=== PATIENT | male | born 1940 | race Caucasian/White ===

== ENCOUNTER 2017-01-25 10:44 | Inpatient (IN) | payer MEDICARE, OTHER ==
[~2017-01-25] VITALS: Ht 182.9 cm; Wt 108.4 kg
[2017-01-25] MEDS ORDERED: METF10004 PO (11:06)
[2017-01-25] MEDS ORDERED: GLIM2TAB PO (11:06)
[2017-01-25] MEDS ORDERED: FISH1000 PO (11:06)
[2017-01-25] MEDS ORDERED: PRAV40TA2 PO (11:06)
[2017-01-25] MEDS ORDERED: IPRAINH INH (11:06)
[2017-01-25] MEDS ORDERED: INCR1INH IN (11:06)
[2017-01-25] MEDS ORDERED: HYDR12.55 PO (11:06)
[2017-01-25] MEDS ORDERED: LISI-538 PO (11:06)
[2017-01-25] MEDS ORDERED: ASPI81TA85 PO (11:06)
[2017-01-25] MEDS ORDERED: MULTCAP11 PO (11:06)
[2017-01-25] MEDS ORDERED: CARV12.5 PO (11:06)
[2017-01-25] MEDS ORDERED: COMBAER6 INH (11:06)
[2017-01-25 11:55] LABS: BASO # 0.1 K/mm3 (0.0-0.2); EOS # 0.3 K/mm3 (0.0-0.50); EOS % 3.8 % (0.0-3.0); LARGE UNSTAINED CELL # 0.1 K/mm3 (0.0-0.4); LARGE UNSTAINED CELL % 1.9 % (0.0-4.0); LYMPH # 1.2 K/mm3 (1.5-4.5); LYMPH % 14.1 % (24.0-44.0); MEAN CORPUSCULAR HEMOGLOBIN 30.7 pg (27.0-33.0); MEAN CORPUSCULAR HGB CONC 34.2 g/dl (32.0-36.5); MEAN CORPUSCULAR VOLUME 89.7 fl (80.0-96.0); MONO # 0.6 K/mm3 (0.0-0.8); MONO % 7.5 % (0.0-5.0); NEUTROPHILS # 5.6 K/mm3 (1.8-7.7); NEUTROPHILS % 71.9 % (36.0-66.0); PLATELET COUNT, AUTOMATED 240 k/mm3 (150-450); RED CELL DISTRIBUTION WIDTH 14.7 % (11.5-14.5); WHITE BLOOD COUNT 7.8 K/mm3 (4.0-10.0)
[2017-01-25 12:00] LABS: INR 0.94
[2017-01-25 12:17] LABS: ALBUMIN 3.3 GM/DL (3.2-5.2); ALBUMIN/GLOBULIN RATIO 0.77 (1.00-1.93); ALKALINE PHOSPHATASE 57 U/L (45-117); ALT/SGPT 36 U/L (12-78); ANION GAP 7 MEQ/L (8-16); AST/SGOT 21 U/L (15-37); BILIRUBIN,DIRECT < 0.1 MG/DL (0.0-0.2); BILIRUBIN,TOTAL 0.4 MG/DL (0.2-1.0); BLOOD UREA NITROGEN 22 MG/DL (7-18); CALCIUM LEVEL 9.2 MG/DL (8.8-10.2); CARBON DIOXIDE LEVEL 29 MEQ/L (21-32); CHLORIDE LEVEL 106 MEQ/L (98-107); CREATININE FOR GFR 1.04 MG/DL (0.70-1.30); GLOMERULAR FILTRATION RATE > 60.0 (>42); GLUCOSE, FASTING 82 MG/DL (83-110); POTASSIUM SERUM 3.9 MEQ/L (3.5-5.1); SODIUM LEVEL 142 MEQ/L (136-145); TOTAL PROTEIN 7.6 GM/DL (6.4-8.2)
--- NOTE | 2017-01-25 13:08 | REP ---
PORTABLE CHEST: No comparison. Single view of the chest is performed. There are diffuse increased interstitial markings bilaterally which may be chronic in nature. No consolidation is seen. Heart is not enlarged. There is some tortuosity of the thoracic aorta. The mediastinal silhouette is otherwise unremarkable. IMPRESSION: Diffuse increased interstitial markings bilaterally may be chronic in nature. No consolidation. Signed by Marino Ford MD 01/25/2017 05:10 P
[2017-01-25] MEDS ORDERED: ACETAMINOPHEN TAB 650MG DOSE (2X325MG) PO PRN (13:30)
[2017-01-25] MEDS ORDERED: IPRATROPIUM 0.5MG/ALBUTEROL 2.5MG INH SOL UD 3ML (DUONEB)(J7620) NEB PRN (13:30)
[2017-01-25] MEDS ORDERED: GLUCAGON FOR INJ 1 MG VIAL (J1610) SC PRN (13:30)
[2017-01-25] MEDS ORDERED: DEXTROSE 50% 50 ML SYRINGE IV PRN (13:30)
[2017-01-25] MEDS ORDERED: ONDANSETRON 4MG/2ML VIAL (J2405) IV PRN (13:30)
[2017-01-25] MEDS ORDERED: GLUCOSE 4 GM CHEW TABLET PO PRN (13:30)
[2017-01-25] MEDS ORDERED: IPRASOL4 INH (14:13)
[2017-01-25] MEDS ORDERED: AMAR1TAB PO (14:13)
[2017-01-25] MEDS ORDERED: ASPI325T PO (14:13)
[2017-01-25] MEDS ORDERED: PRAV80TA PO (14:13)
[2017-01-25] MEDS ORDERED: STOO100C PO (14:13)
[2017-01-25 15:30] VITALS: BP 142/83
[2017-01-25] MEDS: HumaLOG INSULIN (NovoLOG) PER UNIT SC SCH ×3 (17:21→20:59)
[2017-01-25 20:00] VITALS: BP 131/70
[2017-01-25] MEDS: PRAVASTATIN 20 MG TAB PO SCH (20:53)
[2017-01-25] MEDS: DOCUSATE SODIUM 100 MG CAP PO SCH (20:53)
[2017-01-25] MEDS: OMEGA-3 1050MG CAPSULE PO SCH (20:53)
[2017-01-25] MEDS: HEPARIN SOD (PORCINE) 5000 UNITS/ML VIAL SC SCH (20:54)
[2017-01-26] VITALS (7 sets, daily range): BP systolic 129–171; BP diastolic 71–93; O2SAT 92
[2017-01-26 05:59] LABS: MEAN CORPUSCULAR HEMOGLOBIN 30.5 pg (27.0-33.0); MEAN CORPUSCULAR VOLUME 89.7 fl (80.0-96.0); RED CELL DISTRIBUTION WIDTH 14.5 % (11.5-14.5); WHITE BLOOD COUNT 7.2 K/mm3 (4.0-10.0)
[2017-01-26 06:10] LABS: ANION GAP 9 MEQ/L (8-16); BLOOD UREA NITROGEN 20 MG/DL (7-18); CALCIUM LEVEL 8.1 MG/DL (8.8-10.2); CARBON DIOXIDE LEVEL 29 MEQ/L (21-32); CHLORIDE LEVEL 105 MEQ/L (98-107); GLOMERULAR FILTRATION RATE > 60.0 (>42); GLUCOSE, FASTING 137 MG/DL (83-110); POTASSIUM SERUM 3.9 MEQ/L (3.5-5.1); SODIUM LEVEL 143 MEQ/L (136-145)
[2017-01-26] MEDS: LISINOPRIL 20 MG TAB PO SCH (08:07)
[2017-01-26] MEDS: OMEGA-3 1050MG CAPSULE PO SCH ×2 (08:07→21:24)
[2017-01-26] MEDS: HEPARIN SOD (PORCINE) 5000 UNITS/ML VIAL SC SCH (08:07)
[2017-01-26] MEDS: HumaLOG INSULIN (NovoLOG) PER UNIT SC SCH ×4 (08:08→21:00)
[2017-01-26] MEDS ORDERED: ASPIRIN 325 MG TAB PO SCH (09:00)
--- NOTE | 2017-01-26 15:04 | CR ---
CARDIOLOGY CONSULTATION DATE OF CONSULTATION: 01/26/2017 REFERRING PHYSICIAN: Orquidea Lancaster DO INDICATION: Recurrent near syncope and bradyarrhythmia. HISTORY: This 76-year-old , retired resident of [place] who boucher at [place], [place] 3-4 months of the year, is previously known to Dr. Stinson's family practice and our cardiology service. He has known ischemic and hypertensive heart disease. Since 2008, he has elected to have his medical care primarily in [place]. According to he and his , this past year has been somewhat eventful with falls, orthopedic injury, bad bout of bronchitis, discovery of chronic hypoxemia and obstructive sleep apnea, kidney stones and prostatism, along with the discovery of an asymptomatic distal abdominal aortic aneurysm (5.1 cm in diameter). At this time, he claims to walk on his treadmill for 10-15 minutes daily at two miles an hour and lifts light weights for an additional 10 minutes daily, ultimately limited perhaps by mild shortness of breath. Has been free of any effort related chest, jaw, or arm discomforts. Admits to a 15-year history of intermittent faints with usually identifiable triggers. The last episode of collapse was in 2006 while he was having the gary removed from his knee incision at his orthopedic physician's office. He has had at least four episodes of actual loss of consciousness without sustaining injury. These had been fairly brief in duration without postictal confusion, incontinence or seizure activity. Last fall while walking down a grade in the heat, when he had not been feeling well due to a respiratory tract infection, he claims to have tripped and fallen with his arms outstretched sustaining bilateral rotator cuff injuries. Adamantly denies any dizziness or loss of consciousness at that time. Because of his respiratory problems, has been on continuous home O2 and his routinely checks his O2 saturation and has found his pulse to be usually in the 80s despite his carvedilol beta-alessia therapy. Approximately 1 week ago while preparing his breakfast, developed an episode of profound lightheadedness with associated marked diaphoresis. He promptly sat down thinking this may have been hypoglycemia and had a glass orange juice. His fingerstick blood sugar at that time showed a value of 99. Because of persistent lightheadedness, he laid down with resolution of the symptom and gradual resolution of his diaphoresis. His checked his O2 saturation and found this to be between 40 and 50, which was unusual. She had advised seeking medical attention, but they elected not to pursue this at that time. She has continued to monitor his O2 saturation and finally persuaded him to seek medical attention yesterday at noon because of ongoing low pulse rate values. Upon his presentation, he reported he had been having more effort dyspnea, but denied feeling further faintness. He had taken his carvedilol that morning. Initial vital signs showed a heart rate of 50 bpm, blood pressure 167/86, respiratory rate 16 per minute, O2 saturation 92% on supplemental oxygen by nasal prongs at 2 liters (his chronic therapy). His EKG showed underlying sinus rhythm with 2:1 AV response and a ventricular rate of 40 bpm. There was no acute ST/T-wave abnormality. Troponin I level was negative. He was admitted to the hospitalist service for observation on telemetry off his beta-alessia therapy. EKG this morning reportedly showed a heart rate of 94 bpm , but prior to his discharge the service requested cardiology for followup while he remains in the [facility] until the end of February. OTHER CARDINAL CARDIAC SYMPTOMS: As mentioned, since March 2016 is receiving continuous supplemental oxygen by nasal prongs because of hypoxemia (his usual saturation on room air without oxygen is 88 and drops to 82 with minimal activity). Was also diagnosed with obstructive sleep apnea and started on CPAP, but the patient admits noncompliance with this, primarily because of profound nasal congestion. He has arrangements with his pulmonary physician in [place] for possibly adjustments of his mask or other interventions for this condition. At this point, has occasional cough productive of clear sputum. Has chronic rhinitis. Denies hemoptysis. Had been hospitalized in his 20s for pneumonia. No other hospitalizations for respiratory problems. No known rheumatic fever or heart murmur. Treated hypertension since his late 40s with recent values 139/ 80. Unaware of cardiomegaly. Longstanding weight problem (weighed 195 pounds at age 20; 250 pounds was his maximum weight 2-3 years ago; has lost between 5 and 10 pounds this past year). Has a prior 40-year one half pack per day smoking history, stopped in 2006. Has no awareness of his heart action and has not been told he has had any rhythm irregularity. No family history of premature sudden cardiac or congenital deafness. Drinks two cups of caffeinated coffee daily, perhaps two-three cups of tea or iced tea weekly, rare soda and even more rare alcohol intake. No history of thyroid dysfunction. Does not use [id number] decongestants, energizers or dietary aids. Denies claudication, but incidentally discovered distal abdominal aortic aneurysm on CT scan performed May 2016 because of kidney stone (5.1 cm in diameter). Has a followup appointment with vascular surgery in [place] March 2017. Denies claudication. No known varicose veins or phlebitis. But since his bilateral knee replacements has had some ankle swelling. KNOWN PAST CARDIAC DISEASE/EVENTS/TESTS: No ischemic heart disease dating back to 2001, underwent stent placement ? right coronary artery. Had an adenosine Cardiolite heart scan March 2008 with no inducible chest pain, EKG ST/T-wave change or arrhythmia. OR interval at that time measured 160 milliseconds. Left ventricular size and contraction was normal with ejection fraction of 62%. Nuclear images showed that appeared to be a diaphragmatic attenuation artifact, but could not rule out a small inferior injury with certainty. There was no reversible perfusion abnormality at that time. Claims to have undergone a regular treadmill study 2 years ago completing 5-6 minutes and stopping with leg fatigue. Told there was no need for invasive intervention at that time. CORONARY RISK FACTORS: Male gender. Age. Remote long-term smoking history as mentioned above. Treated hypertension since his late 40s. Hypercholesterolemia since at least 2008. Diabetes mellitus/glucose intolerance dating back to 2007 with a glycosylated hemoglobin of 6.7 and fasting glucose 142. Family history - no premature heart attack or intervention. Obesity. OTHER PAST MEDICAL HISTORY: Obesity. Chronic rhinitis. Remote gastroesophageal reflux. Prostatism. He had been on Proscar 2007, but this had been discontinued by a physician in [place]. Kidney stone with transient hematuria May of 2016. Episodic bronchitis and obstructive sleep apnea. Chronic normocapnic respiratory failure on supplemental oxygen by nasal prongs continuously since March of 2016. Degenerative joint disease status post bilateral knee replacements 2006 and 2008. Peripheral venous insufficiency. Remote bilateral cataract extraction and lens implants. SYSTEMS REVIEW: Denies any recent fever, chills, but weight loss with dietary measures the past year as described above. Wears corrective lenses. Denies hearing problems. Few missing teeth. No known thyroid problems. Currently denies any dysphagia. Has a good appetite. No abdominal pain, change in bowel habit or GI bleeding. Colonoscopy 3 years ago - three small polyps removed. Nocturia with some hesitancy. Bilateral shoulder arthralgia following his fall last March causing bilateral rotator cuff injury. All other systems review is negative. MEDICATIONS: Home medications have included: - carvedilol 12.5 mg p.o. b.i.d. - lisinopril 20 mg daily - hydrochlorothiazide 12.5 mg daily - pravastatin 80 mg daily - aspirin 325 mg daily - Amaryl 1 mg daily - metformin 1 gram b.i.d. - albuterol inhaler 1 puff q.i.d. p.r.n. - DuoNeb therapy one treatment q.4 h p.r.n. dyspnea - Colace 100 mg q.h.s. - fish oil 1 gram b.i.d. - INCRUSE Ellipta 62.5 mcg inhaler daily p.r.n. - multivitamin ALLERGIES: PENICILLINS (swelling). PHYSICAL EXAMINATION: CONSTITUTIONAL: Somewhat barrel-chested obese elderly male sitting comfortably. Bright and alert. No pallor or cyanosis. VITAL SIGNS: Heart rate irregular at approximately 40 bpm. Blood pressure 125/ 76 supine, unchanged upon sitting with legs dependent. Respiratory rate 18 per minute. O2 saturation 92-98% on nasal prongs supplemental oxygen at 2 liters per minute. Height 72 inches. Weight 240 pounds, BMI 32.5. Afebrile. EYES: Normal conjunctiva and lids. No icterus or pallor. No xanthelasma. ENT/MOUTH: Few missing teeth. No central cyanosis. Normal oral moisture. NECK: Trachea midline. Thyroid not enlarged. Jugular veins were elevated 2-3 cm above the sternal angle. EXTREMITIES: No clubbing, peripheral cyanosis or splinter hemorrhages. RESPIRATORY: Increased anteroposterior chest diameter with reduced chest excursion. Reduced air entry over both lung andrade but no inspiratory rales. Slight prolongation of expiration with end-expiratory wheeze. CARDIOVASCULAR: Apical impulse not palpable. Heart sounds were quite distant and variable with his arrhythmia. No audible gallop or murmur. Carotid upstrokes were normal with variable volume related to his arrhythmia. No bruits. Upper extremity pulses were symmetrical as were femoral pulses as well as pedal pulses. Abdominal aorta was not palpable because of abdominal obesity. No audible bruit. No varicose veins, but has stasis discoloration both lower legs. Pitting edema approximately two-thirds of the way up both lower legs, but no sacral pitting. GASTROINTESTINAL (GI): Obese, soft, nontender with no apparent hepatosplenomegaly. Normal bowel sounds. Rectal examination not indicated. MUSCULOSKELETAL: Walking short distances in the room his gait appeared to be normal. Bilateral well-healed knee incisions, but no other obvious joint deformity. Fairly normal muscular strength for age. Normal tone. Normal spine curvature. SKIN: Stasis dermatitis as mentioned above, both lower legs, no other rashes, ecchymotic lesions, pallor or icterus. NEURO/PSYCH: Bright, alert and orientated. Gave a fair history. Eye, facial, extremity movements were symmetrical and normal. INVESTIGATIONS: Portable upright chest x-ray taken in the emergency room yesterday was reviewed independently and shows heart size upper limits of normal, even for this technique. Thoracic aorta was slightly unfolded. Somewhat prominent proximal pulmonary vessels, but no obvious pulmonary venous congestion. Increased interstitial markings, but no pleural effusion. EKGS: Tracing yesterday at 11:23 a.m. showed underlying sinus rhythm, rate 80 bpm. There was 2:1 AV conduction. Left atrial conduction disturbance. Narrow QRS complexes of normal amplitude and axis. No evidence of prior infarction. There was subtle J point elevation in all three inferior leads and V4-V6 but no serial evolutionary change on followup EKG even with faster rate this morning at 07:49 a.m. This morning's tracing shows sinus rhythm with marked first-degree AV block. EKG telemetry at this time shows underlying sinus rhythm with 2:1 AV conduction and episodes of second-degree AV block Mobitz type 1 rate varying between 40 and 56 bpm. LABORATORY FINDINGS: Serial complete blood counts showed a normal hemoglobin of 15.5. Normal white blood cell count and normal platelet counts. His PT/INR was normal. Chemistry confirmed electrolyte balance with marginal prerenal azotemia , BUN 22, creatinine 1.0. Random glucose yesterday was 82, fasting glucose this morning 137. Serum magnesium level and calcium were normal. Liver function studies have been normal with albumin 3.3. Ultra sensitive TSH was normal at 1.5. Troponin I was negative and normal CPK. BNP level was mildly elevated at 277. IMPRESSION/PLAN: 1. 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 His beta-alessia therapy has been withheld for the past 24 hours with some indication of improved conduction. We will plan on keeping him n.p.o. and have recommended permanent dual-chamber pacemaker implantation should his AV conduction not significantly improve in the next 24 hours. The indication, procedure and potential risks of permanent pacemaker implant were discussed with the patient and his , who appear to understand and agree. 2. Shortness of breath: Effort dyspnea likely related to multiple factors including his longstanding obesity, prior smoking induced chronic bronchitis and possible pulmonary fibrosis. His bradyarrhythmia may well have been contributing. I suspect he does have left ventricular diastolic dysfunction with an enlarged left atrium and is at increased risk of heart failure. An echocardiogram/Doppler study will be obtained. Remains on continuous supplemental oxygen by nasal prongs because of his well documented eucapnic chronic respiratory failure. 3. Coronary artery disease ([place]-apache vessel)/remote percutaneous coronary angioplasty - stenting: Has remained free of symptomatic myocardial ischemia, but with his shortness of breath could not rule out an anginal equivalent with his diabetes mellitus. Fortunately has no serial EKG repolarization changes, and Troponin I level initially was negative. A followup study will be obtained on blood work from this morning. His carvedilol beta-alessia therapy has been withheld because of his conduction problems. He will remain on protective HANG inhibitor therapy, which has been increased along with his statin therapy and aspirin. 4. Hypertensive heart disease (benign with heart failure)/heart failure (unspecified): Has had increasing effort dyspnea as mentioned above, likely related to multiple factors. Though he does not having inspiratory rales on examination, his chest x-ray does show somewhat prominent proximal pulmonary vessels suggestive of pulmonary hypertension. His EKG also has a left atrial conduction disturbance, likely reflective of chronic left ventricular diastolic dysfunction. Present blood pressure is adequately controlled. Has subtle prerenal azotemia also possibly related to his new-onset bradyarrhythmia. I have reviewed these opinions with the patient and his who appear to understand and agree. We will plan on monitoring closely with you for the time being and will be involved in his care while he remains in the [facility]. I thank you for allowing me to participate in the care of your patient. Best regards. cc: MD JOE Ponce
--- NOTE | 2017-01-26 15:04 | HPE ---
DATE OF ADMISSION: 01/25/2017 This is a patient of Dr. Natty Rust in [place], [place]. CHIEF COMPLAINT: Weakness. SUMMARY OF PRESENTATION: This is a 76-year-old snowbird who lives near [place], [place] and spends several weeks up here in the summer at a cottage on [address]. He has been feeling weak, lightheadedness and dizzy over the course of the last week or so. 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 He does have chronic pulmonary obstructive disease (COPD) with an oxygen requirement. He is relatively noncompliant with oxygen especially with activity. During the course of checking his pulse oximetry she noted yesterday that his heart rate was 48, normally his heart rate is in the 80s but it varies from the high 70s to the low 90s and is never 48. He was feeling weak, having increased shortness of breath with exertion. He did not seek medical attention yesterday as he had friends visiting from [place] and he did not want to abandon them. They left today and the plan was to bring him in for evaluation. He has had no chest pain, no palpitations. He has had increased dyspnea with exertion with no fever, no cough. He has had no medication changes recently. FAMILY HISTORY Family history is notable for significant episodes of from heart disease in his father's side. SOCIAL HISTORY: He is from [place], [place]. Hung in the [place]. Quit smoking in 1999, occasionally drinks alcohol. PAST SURGICAL HISTORY: Notable for bilateral knees, cataract repair and placement of three stents in around 2000. PAST MEDICAL HISTORY: 1. 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 He is not known to have congestive heart failure. 2. He does have a abdominal aortic aneurysm (triple A) which is approximately 5 cm in size which he plans to have addressed when he returns to [place] this fall. 3. He has had cataract extractions. 4. History of diabetes. 5. History of what his describes as severe COPD. His last prednisone dosing was March 2016. 6. Obstructive sleep apnea noncompliant with CPAP. 7. History of four vasovagal episodes but the last was 10-12 years ago. ALLERGIES: PENICILLIN. MEDICATIONS AT HOME: - albuterol ipratropium in the form of Combivent - aspirin 325 mg daily - Coreg 12.5 mg by mouth twice a day - Colace 100 mg by mouth nightly - Fish Oil twice a day - glimepiride 1 mg daily - hydrochlorothiazide 12.5 mg daily - lisinopril 20 mg daily - metformin 1000 mg twice a day - pravastatin 80 mg by mouth nightly - Incruse Ellipta - multivitamin daily REVIEW OF SYSTEMS: Notable for no headache, no visual changes, no runny nose, no sore throat, no neck pain, he has had no cough. He has had increasing shortness of breath especially with exertion, especially with going up stairs. No abdominal pain or change of bowel or bladder habits. No focal weakness, otherwise unremarkable. PHYSICAL EXAMINATION VITAL SIGNS: Temperature 97.6, pulse 74, respiratory rate 20, blood pressure 142/83, 95% on 2 liters. Body mass index 32.5. GENERAL: He is awake and alert, pleasant and conversant. When I first evaluated him his heart rate was in the 40s, appeared to be in 2 to 1 (2:1) heart block on telemetry, verified on EKG. He was moving around without difficulty. No shortness of breath apparent. No accessory muscle use. He is not tachypneic. HEENT: Normocephalic atraumatic. Pupils equal and reactive. Moist mucous membranes. NECK: Supple, thick. LUNGS: Breathing symmetrical, I:E ratio is 1:3. HEART: Distant sounding, was bradycardic on exam. Radial pulses 2+. Capillary refill is less than two seconds. ABDOMEN: Soft, doughy, nontender. EXTREMITIES: No significant lower extremity edema. LABORATORY DATA: White cell count 7.8, hemoglobin 15.5, platelets 240, INR 0.94, creatinine 1.04, BNP 277, TSH 1.49. Chest x-ray showed diffuse increased interstitial markings bilaterally without old which to compare. ASSESSMENT: This is a 76-year-old with symptomatic bradycardia related to 2:1 heart block. The patient will be admitted for two midnights hospital stay. PLAN WILL BE FOLLOWS: 1. Cardiovascular. The patient's Coreg is held. Continue his aspirin, continue his lisinopril for blood pressure control. Hold his diuretics. Will monitor on telemetry. Presumably with a held beta-alessia heart block will resolve and it appears as though the rate is increased on the computer at this point although I have not had a chance to verify the telemetry. 2D echocardiogram is ordered. Will obtain old records from Dr. Rust. 2. The patient has diabetes. Will switch him to sliding scale insulin during his stay overnight. 3. The patient has chronic pulmonary obstructive disease (COPD) with chronic hypoxic respiratory failure, appears to be compensated. Will continue him on monitor tonight and make available supplemental oxygen. 4. Deep venous thrombosis (DVT) prophylaxis. This is ordered.
--- NOTE | 2017-01-26 17:18 | IPN ---
DATE: 01/26/2017 SUBJECTIVE: Patient seen and examined in the room today. Patient does not complain about any acute symptoms since admission. At the time of encounter in the morning, patient did have a heart rate greater than 60 persistently. However on telemetry they do have record of bradycardia with heart block. OBJECTIVE: Vital signs: Temperature 98.7, pulse 66, respirations 18, blood pressure 156/93, pulse ox 90% on room air. GENERAL: No sign of acute distress, awake, alert, and oriented times three. HEENT: Normocephalic, atraumatic. Extraocular movement grossly intact. CARDIOVASCULAR: Positive S1, S2. Regular rate. LUNGS: Clear to auscultation bilaterally. ABDOMEN: Obese, soft, non-tender, non-distended, bowel sounds present. EXTREMITIES: There is some venous stasis changes but no significant swelling. No sign of cyanosis. LABORATORY DATA: WBC 7.2, hemoglobin 15.5, hematocrit 45.8, platelet count 215. Sodium 143, potassium 3.9, chloride 105, carbon dioxide 29, BUN 20, creatinine 0.8. Glomerular filtration rate (GFR) is greater than 60. Fasting glucose 137, calcium 8.1, magnesium 2, troponin I is less than 0.02. ASSESSMENT AND PLAN: 1. AV block. Captured on telemetry. The patient's beta alessia has been discontinued. Cardiology Dr. Jim has been consulted. Appreciate his assistance. Patient continued to be monitored on telemetry floor. 2. Abdominal aortic aneurysm. Approximately 5 cm in size. Patient's plan to address the issue when patient returns to [place] in the Fall. 3. Diabetes. Insulin sliding scale. 4. Severe chronic obstructive pulmonary disease. No sign of exacerbation at this moment. 5. Obstructive sleep apnea not compliant with continuous positive airway pressure (CPAP). Patient will be on obstructive sleep apnea protocol. 6. Deep vein thrombosis prophylaxis. On thromboembolic deterrent stockings (TEDS) sequential and compression device.
--- NOTE | 2017-01-26 20:01 | ECGEPIP ---
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
[2017-01-26] MEDS: DOCUSATE SODIUM 100 MG CAP PO SCH (21:24)
[2017-01-26] MEDS: PRAVASTATIN 20 MG TAB PO SCH (21:24)
[2017-01-27] VITALS (7 sets, daily range): BP systolic 107–186; BP diastolic 64–93
[2017-01-27 06:21] LABS: MEAN CORPUSCULAR HEMOGLOBIN 30.5 pg (27.0-33.0); MEAN CORPUSCULAR HGB CONC 33.9 g/dl (32.0-36.5); MEAN CORPUSCULAR VOLUME 90.1 fl (80.0-96.0); RED CELL DISTRIBUTION WIDTH 14.6 % (11.5-14.5); WHITE BLOOD COUNT 6.9 K/mm3 (4.0-10.0)
[2017-01-27 06:46] LABS: ANION GAP 4 MEQ/L (8-16); BLOOD UREA NITROGEN 21 MG/DL (7-18); CARBON DIOXIDE LEVEL 31 MEQ/L (21-32); CHLORIDE LEVEL 107 MEQ/L (98-107); CREATININE FOR GFR 0.84 MG/DL (0.70-1.30); GLOMERULAR FILTRATION RATE > 60.0 (>42); GLUCOSE, FASTING 152 MG/DL (83-110); MAGNESIUM LEVEL 2.2 MG/DL (1.8-2.4); POTASSIUM SERUM 3.9 MEQ/L (3.5-5.1); SODIUM LEVEL 142 MEQ/L (136-145)
[2017-01-27] MEDS: HumaLOG INSULIN (NovoLOG) PER UNIT SC SCH ×5 (07:22→21:00)
--- NOTE | 2017-01-27 08:19 | ECGEPIP ---
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
[2017-01-27] MEDS ORDERED: SLF 3 ML SYR IV PRN (09:45)
[2017-01-27] MEDS: LISINOPRIL 20 MG TAB PO SCH (09:49)
[2017-01-27] MEDS ORDERED: VANCOMYCIN HCL 1,000 MG, VIAL MATE ADAPTER 1 EACH in D5W 250 ML IV SCH (14:00)
[2017-01-27] MEDS ORDERED: MUPIROCIN 2% OINT 22 GM TUBE As Ordered ONE (14:17)
[2017-01-27] MEDS ORDERED: LIDOCAINE 1% SDV INJ 30 ML VIAL As Ordered ONE (14:17)
[2017-01-27] MEDS: VANCOMYCIN 1000 MG/20 ML VIAL (J3370) As Ordered ONE ×2 (14:18→15:15)
[2017-01-27] MEDS ORDERED: ISOVUE-300 61% 50ML VIAL (Q9967) As Ordered ONE (14:18)
[2017-01-27] MEDS: SLF 3 ML SYR IV SCH ×2 (15:32→21:49)
--- NOTE | 2017-01-27 15:48 | IPN ---
DATE: 01/27/2017 SUBJECTIVE: Patient seen and examined in the room today. Denies any acute complaint or acute changes. Still requiring intermittent oxygen support. OBJECTIVE: VITAL SIGNS: Temperature 997.6, pulse is 76, respirations 18, blood pressure is 121/65, pulse oximetry 93% with 2 liters nasal cannula. GENERAL: No sign of acute distress, alert and oriented times three. HEENT: Normocephalic, atraumatic. Extraocular motor grossly intact. CARDIOVASCULAR: At the time of encounter, patient has a regular rate. Positive S1, S2. LUNGS: Clear to auscultation bilaterally. ABDOMEN: Obese, soft, nontender, nondistended. Bowel sounds present. EXTREMITIES: Some venous stasis changes bilaterally but no sign of cyanosis. LABORATORY DATA: WBC 6.9, hemoglobin 15.3, hematocrit 44.9, platelet count 220. Sodium is 142, potassium 3.9, chloride 107, carbon dioxide 31, BUN 21, creatinine 0.84, GFR greater than 60, fasting glucose 152, calcium 9, magnesium 2.2. ASSESSMENT AND PLAN: 1. Atrioventricular (AV) block. Captures on telemetry. Beta alessia has been on hold. Dr. Atkins will bring the patient to the operating room (OR) for dual-chamber pacemaker placement in the afternoon. Patient will continue to be monitored on telemetry. 2. Abdominal aortic aneurysm, approximately 5 cm in size. Patient will try to address the issue when patient returns to [place] in the fall. 3. Diabetes, on sliding scale. 4. History of chronic obstructive pulmonary disease (COPD). No sign of exacerbation at this moment. Continue to monitor. 5. Obstructive sleep apnea (NEFTALY), noncompliant with CPAP. NEFTALY protocol. 6. Deep vein thrombosis (DVT) prophylaxis, on thromboembolic deterrents (TEDs) and sequential compression devices.
[2017-01-27] MEDS ORDERED: VANCOMYCIN 1000 MG/20 ML VIAL (J3370) XX ONE (18:22)
[2017-01-27] MEDS ORDERED: LIDOCAINE 2% INJ 100 MG/5 ML SDV (FOR ANES.) As Ordered ONE (18:27)
[2017-01-27] MEDS ORDERED: MIDAZOLAM INJ 2 MG/2 ML VIAL (J2250) As Ordered ONE (18:27)
[2017-01-27] MEDS ORDERED: fentaNYL 100 MCG/2 ML INJECTION (J3010) As Ordered ONE (18:27)
[2017-01-27] MEDS ORDERED: PROPOFOL 200 MG/20 ML VIAL As Ordered ONE (18:41)
[2017-01-27] MEDS ORDERED: METOCLOPRAMIDE INJ 10MG/2ML VIAL (J2765) IV PRN (19:30)
[2017-01-27] MEDS ORDERED: LR 1,000 ML IV SCH (19:30)
[2017-01-27] MEDS ORDERED: fentaNYL 100 MCG/2 ML INJECTION (J3010) IV PRN (19:30)
[2017-01-27] MEDS ORDERED: ONDANSETRON 4MG/2ML VIAL (J2405) IV PRN (19:30)
--- NOTE | 2017-01-27 19:30 | REP ---
Chest x-ray: Single view: History: Near-syncope and juan carlos arrhythmia. 27 minutes of fluoroscopy time is reported. Findings: A single last image hold fluoro spot view of the heart documents lead position. Signed by Andreas Duvall MD 01/27/2017 07:42 P
--- NOTE | 2017-01-27 20:46 | REP ---
Portable chest x-ray: Semi-erect AP view: History: Postop. Findings: A bipolar pacemaker is been installed in the right heart via the left side. There is no evidence of pneumothorax or hydrothorax. There is a zone of linear density in the left base consistent with atelectasis or fibrosis unchanged from the prior study. The aorta is somewhat tortuous as before. Impression: Pacemaker in place. No evidence of pneumothorax. Signed by Andreas Duvall MD 01/28/2017 11:04 A
[2017-01-27] MEDS: DOCUSATE SODIUM 100 MG CAP PO SCH (21:44)
[2017-01-27] MEDS: ASCORBIC ACID 250 MG TAB PO SCH (21:44)
[2017-01-27] MEDS: PRAVASTATIN 20 MG TAB PO SCH (21:44)
[2017-01-28 00:43] VITALS: BP 131/77
[2017-01-28 04:03] VITALS: BP 123/78
[2017-01-28 05:40] LABS: MEAN CORPUSCULAR HEMOGLOBIN 30.6 pg (27.0-33.0); MEAN CORPUSCULAR HGB CONC 33.6 g/dl (32.0-36.5); MEAN CORPUSCULAR VOLUME 91.2 fl (80.0-96.0); RED CELL DISTRIBUTION WIDTH 14.4 % (11.5-14.5); WHITE BLOOD COUNT 7.5 K/mm3 (4.0-10.0)
[2017-01-28 05:46] LABS: ANION GAP 7 MEQ/L (8-16); BLOOD UREA NITROGEN 19 MG/DL (7-18); CALCIUM LEVEL 8.6 MG/DL (8.8-10.2); CARBON DIOXIDE LEVEL 31 MEQ/L (21-32); CHLORIDE LEVEL 106 MEQ/L (98-107); CREATININE FOR GFR 0.93 MG/DL (0.70-1.30); GLOMERULAR FILTRATION RATE > 60.0 (>42); GLUCOSE, FASTING 161 MG/DL (83-110); MAGNESIUM LEVEL 2.4 MG/DL (1.8-2.4); POTASSIUM SERUM 4.2 MEQ/L (3.5-5.1); SODIUM LEVEL 144 MEQ/L (136-145)
[2017-01-28] MEDS: SLF 3 ML SYR IV SCH (06:00)
[2017-01-28 08:00] VITALS: BP 122/74
--- NOTE | 2017-01-28 08:22 | REP ---
Chest x-ray: Two views: History: Follow-up chest x-ray off telemetry. Comparison study 01/27/2017. Findings: A bipolar pacemaker is seen in the right heart via the left subclavian vein region. EKG electrodes are seen. There is bibasilar linear plate-like atelectasis today. There is no evidence of pneumothorax. Heart is not enlarged. The aorta is somewhat tortuous as before. There are degenerative changes in the thoracic spine. Impression: Mild bibasilar plate-like atelectasis. Pacemaker in place. No pneumothorax seen. Signed by Andreas Duvall MD 01/28/2017 11:05 A
[2017-01-28 09:00] VITALS: BP 126/74
[2017-01-28] MEDS: HumaLOG INSULIN (NovoLOG) PER UNIT SC SCH ×2 (09:00→12:47)
[2017-01-28] MEDS: ASCORBIC ACID 250 MG TAB PO SCH (09:00)
[2017-01-28] MEDS: LISINOPRIL 20 MG TAB PO SCH (09:00)
[2017-01-28] MEDS ORDERED: ASPIRIN 325 MG TAB PO SCH (09:00)
--- NOTE | 2017-01-28 09:09 | RO ---
DATE OF OPERATION: 01/27/2017 PREOPERATIVE DIAGNOSIS: Symptomatic second-degree 2:1 atrioventricular (AV) block. POSTOPERATIVE DIAGNOSIS: Symptomatic second-degree 2:1 atrioventricular block. FINDINGS: Symptomatic second-degree 2:1 atrioventricular block. PROCEDURE PERFORMED: Implantation of a Medtronic dual-chamber pacemaker. SURGEON: Seven Atkins MD CHECKOUT OPERATOR: None. ANESTHESIA: Lidocaine 1% local anesthetic, additionally monitored anesthetic care, and then later on switching over to general anesthesia. SPECIMENS: None. ESTIMATED BLOOD LOSS: Less than 20 mL. BLOOD PRODUCTS REPLACED: None. DRAINS: None. COMPLICATIONS: None. DESCRIPTION OF PROCEDURE: The patient was prepped and draped over the left pectoral region. 3M Ioban film was applied. In the course of this procedure, a left subclavian venogram was performed on three separate occasions twice for the initial vein access and then once to re-acquire vein access for getting access to the vein to put a new atrial sheath in. Each one was performed with a total volume of 15 mL consisting of three parts contrast and one part normal saline. Lidocaine was used for local anesthetic (lidocaine 1%). A micropuncture needle was used to get vein access to the left subclavian vein, extrathoracic portion with the assistance in real time with a left subclavian venogram times two. This was then guidewire exchanged for a guidewire that came with one of the #7-Ukrainian sheaths. Next, the pacemaker incision was made with a PEAK PlasmaBlade through the skin approximately 2-1/2 inches in length and about 1 cm below the skin entry site of the guidewire. The PEAK PlasmaBlade was used to get through the fatty layer on the fibrous Perla fascia. The pacemaker pocket was then formed in a caudal direction using blunt dissection to separate the prepectoral fascia from the Perla fascia using two fingers. Next, the guidewire was pulled through the skin incision site. Next, a second vein access was obtained at the level of the pectoral muscle, more lateral to the first guidewire using a micropuncture needle and using fluoroscopy and using the first guidewire as a fluoroscopic marker. This was then guidewire exchanged for the guidewire that came with the other #7-Ukrainian sheath. Next, the standard length #7-Ukrainian sheath was placed over the more lateral of the guidewires and used for vein access for the right ventricle lead. The right ventricle lead was implanted into the right ventricle apex position where it was secured with a total of eight turns. No diaphragm stimulation could be palpated on either side at 10 volts high-output pacing for the ventricle lead. The sheath was then broken apart, and that ventricle lead was secured with a total of three individual sutures consisting of 0 Ethibond to secure it to the pectoral muscle with the supplied tie-down sleeve. Next, a standard length #7-Ukrainian sheath was placed over the more medial of the guidewires and was used for vein access for the right atrial lead. The right atrial lead placement turned out to be extraordinarily difficult. Multiple sites were tried, and one of the difficulties that I encountered repeatedly was that the preformed J stylet of different sizes kept on leaning in towards the tricuspid valve and right ventricle and would not point up into the right atrial appendage. I did try two sites along the lateral wall, which did not provide adequate sensing and capture, and in the other case soon thereafter the lead dislodged. I finally got a position that appeared to be in the right atrial appendage and seemed to be successful. However, after removing the #7-Ukrainian sheath, the numbers for sensing of the P wave deteriorated, such that I needed to reposition the lead. Unfortunately, at this point, I no longer had the support of the sheath. It proved to be very difficult to get a working position in the right atrium, and multiple attempts were used using multiple sheaths, and one of the difficulties encountered was the tortuosity in the innominate vein at its junction with the superior vena cava and also at its union with the left subclavian vein. Without the support of the sheath, one of the difficulties I encountered was that the J stylets had difficulty advancing at the junction between the subclavian vein and the innominate vein; and ultimately, I discovered that I could no longer advance the leads; and under fluoroscopy, it appeared that the atrial lead I was working with was broken. I then removed this atrial lead. Next, I obtained venous access again with another micropuncture needle, this time using 50 mL of a contrast mixture to help visualize the left subclavian vein. This was then guidewire exchanged for a guidewire that came with a long #7-Ukrainian sheath. I then placed a brand new atrial lead, I believe that three more positions were tried; and ultimately, I was successful getting into a position that appeared to be in the vicinity of the right atrial appendage and remained stable. The long #7-Ukrainian sheath was then broken apart and removed. The atrial lead was then secured to the pectoral muscle using two individual sutures consisting of #0 Ethibond to secure it to the pectoral muscle. An #0 Ethibond suture was also placed at the pectoral muscle to serve as the tie-down for the pacemaker pulse generator. The pacemaker pocket was then irrigated with a solution consisting of 1 gram of vancomycin in 250 mL of normal saline. Next, I took a medium size TYRX antimicrobial sack and cut it into six pieces, which were then placed into the floor of the pacemaker pocket. The respective terminal pins of the ventricle and atrial leads were placed into their respective ports in the header of the pacemaker pulse generator, and each one was secured by tightening the set screws with a hex screwdriver. The excess lead material was then coiled underneath the pacemaker pulse generator and placed along with the pacemaker pulse generator into the pacemaker pocket with the excess lead material below and pacemaker pulse generator on top. The pacemaker pulse generator was then secured to the pectoral muscle with the previously-placed #0 Ethibond suture. The deep layer was closed using individual sutures consisting of #2-0 Vicryl. Some additional individual sutures consisting of #3-0 Vicryl were used to help approximate the more superficial layer. The skin was closed using gary. The patient tolerated the procedure well but had to be converted over to general anesthetic because of the length of the procedure and the patient was becoming uncomfortable laying on his back for such a prolonged period of time. No immediate complications were apparent during the course of the operation. The total time of operation from start to finish was 3 hours and 5 minutes, which was double my usual time of approximate 1-1/2 hours. I would rate the degree of difficulty of this operation as twice as difficult as normal.
--- NOTE | 2017-01-28 11:53 | ECGEPIP ---
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
[2017-01-28 12:00] VITALS: BP 134/64
--- NOTE | 2017-01-28 12:07 | ECGEPIP ---
Stationary ECG Study [facility] Test Date: 2017-01-28 Pat Name: BERHANE CLEMONS Department: Room: [place] [address] Gender: M Head Of Precision Targeting: : 1940 Requested By: KATI Scott Order Number: [id number] Reading MD: Alexus Hopper Measurements Intervals [place] Rate: 83 P: 42 ND: 258 QRS: -74 QRSD: 173 T: 82 QT: 437 QTc: 516 Interpretive Statements SINUS RHYTHM VENTRICULAR PACING V PACING IS NEW SINCE 01/27/17 Electronically Signed On 01-28-2017 12:07:04 EDT by Alexus Hopper
[2017-01-28] MEDS ORDERED: ASCO25TA PO (13:13)
--- NOTE | 2017-01-28 16:38 | ECHO ---
DATE OF PROCEDURE: 01/28/2017 REFERRING PHYSICIAN: Dr. Jim INDICATION: Dyspnea. HEIGHT: 183 cm WEIGHT: 113 kg DIMENSIONS: IVS 1.2 LV 4.0 LVPW 1.2 LA: 4.4 Aorta 3.4 FINDINGS: The study is of fair technical quality. The patient is in sinus rhythm. Left ventricle is of normal size and systolic function with estimated ejection fraction (EF) around 60-65%. Mild left ventricular hypertrophy (LVH) is noted. Right ventricle was poorly seen but grossly appears normal. Left atrium is at least moderately enlarged. Right atrium is probably normal size. Aortic valve is sclerotic but is tricuspid and has normal mobility. There are degenerative abnormalities of mitral valve and prominent mitral annular calcifications. Based on limited views there is seems to be at least mild restriction of leaflet mobility. Tricuspid and pulmonic valve were poorly visualized but grossly appear normal. No pericardial effusion is noted. Inferior vena cava is dilated with minimal collapse with respiration indicative of likely very high CVP. Aortic root is normal. Aortic arch and abdominal aorta were not seen. Doppler interrogation of aortic valve reveals no stenosis or insufficiency. There is mild mitral insufficiency and mild mitral stenosis. Peak gradient across the valve was 11 and mean gradient 4 mmHg. Tricuspid and pulmonic valve was poorly visualized. Mitral inflow pattern and tissue Doppler imaging of mitral annulus reveal grade 1 diastolic dysfunction but E-prime velocities of septal and lateral mitral annulus are quite preserved (10.9 and 12.1 cm/sec respectively). CONCLUSIONS: 1. The study is of fair technical quality. 2. Normal LV size with normal LV systolic function and grade 1 diastolic dysfunction. Mild LVH. 3. Aortic sclerosis. 4. Mild mitral stenosis and insufficiency. 5. Likely high CVP. 6. Unable to estimate pulmonary artery pressure under COMMENT: Subacute bacterial endocarditis (SBE) prophylaxis is not recommended. MTDD
--- NOTE | 2017-01-29 20:39 | DSES ---
DATE OF ADMISSION: 01/25/2017 DATE OF DISCHARGE: 01/28/2017 PRIMARY CARE PROVIDER: In [place], is Dr. Natty Rust in [place]. CONSULTANTS: Line Installer Repairer, Dr. Jim/Dr. Atkins. PROCEDURE: Dual-chamber pacemaker insertion. COMPLICATIONS: None. DISCHARGE DIAGNOSES: 1. Atrioventricular block status post dual-chamber pacer. 2. Abdominal aortic aneurysm, approximately 5 cm in size. 3. Diabetes. 4. Chronic obstructive pulmonary disease, on home oxygen. 5. Obstructive sleep apnea, not compliant with continuous positive airway pressure. HOSPITALIZATION COURSE: Patient is a 76-year-old male who presented to [facility] on 01/25/2017 for worsening weakness. During diagnostic workup, patient was found to have atrioventricular (AV) block, and tomb maker helper, Dr. Jim, was consulted. After evaluation, patient determined the need for the pacemaker. On 01/27/2017 patient was brought to the operating room (OR), and Dr. Atkins placed a dual-chamber pacemaker. Patient did not have any complications, and patient was monitored on telemetry overnight. On 01/28/2017 patient is determined medically stable for discharge with recommendation to followup with Dr. Atkins in 7-10 days, and patient recommended to establish with a primary care provider in [place] in the next 1-2 weeks. OBJECTIVE: VITAL SIGNS: Temperature is 98.1, pulse is 82, respirations 18, blood pressure is 134/64, pulse oximetry is 95% with 3 liters nasal cannula. LABORATORY DATA: WBC 7.5, hemoglobin 15.1, hematocrit 44.9, platelet count is 223. Sodium is 144, potassium 4.2, chloride is 106, carbon dioxide 31, BUN 19, creatinine 0.93, GFR greater than 60, fasting glucose 161, calcium 8.6, magnesium 2.4. IMAGING STUDY: Chest x-ray on 01/25/2017 shows diffuse increased interstitial marking bilaterally. No consolidation. DISCHARGE MEDICATIONS: - vitamin C 250 mg by mouth twice a day for 30 days - Combivent one puff inhalation as needed for shortness of breath - aspirin 325 mg by mouth daily - docusate 100 mg by mouth at bedtime - glimepiride 1 mg by mouth daily - hydrochlorothiazide 12.5 mg by mouth daily - Ellipta 62.5 mcg as needed for shortness of breath - lisinopril 20 mg by mouth daily - metformin 1000 mg by mouth twice a day - multivitamin one tablet by mouth daily - pravastatin 80 mg by mouth at bedtime DISCHARGE INSTRUCTIONS: Discontinue line. Discharge home. Activity as tolerated. Consistent-carbohydrate diet and low-salt diet as tolerated. Patient should followup with Dr. Atkins in 7-10 days. Patient should establish with a primary care provider in 1-2 weeks. DISCHARGE CONDITION: Stable. DISCHARGE TIME: Greater than 30 minutes. MTDD
== END 2017-01-28 15:15 | disposition home or self-care (01) | DRG 244 ==
LOC: M ED 12:37 → M ED INP 13:50 → M PCU 15:35
PROVIDERS: ADMIT Internal Medicine; ATTEND Internal Medicine
PROC: 02HK3JZ Insertion of Pacemaker Lead into Right Ventricle, Percutaneous Approach (ICD-10-PCS; 2017-01-27)
PROC: 02H63JZ Insertion of Pacemaker Lead into Right Atrium, Percutaneous Approach (ICD-10-PCS; 2017-01-27)
PROC: 0JH606Z Insertion of Pacemaker, Dual Chamber into Chest Subcutaneous Tissue and Fascia, Open Approach (ICD-10-PCS; principal; 2017-01-27 15:00)
DX: I44.1 Atrioventricular block, second degree (principal); I71.4 Abdominal aortic aneurysm, without rupture; E11.9 Type 2 diabetes mellitus without complications; J44.9 Chronic obstructive pulmonary disease, unspecified; G47.33 Obstructive sleep apnea (adult) (pediatric); Z91.19 Patient's noncompliance with other medical treatment and regimen; Z79.82 Long term (current) use of aspirin; Z79.899 Other long term (current) drug therapy; Z88.0 Allergy status to penicillin; Z87.891 Personal history of nicotine dependence; I25.10 Atherosclerotic heart disease of native coronary artery without angina pectoris; I11.0 Hypertensive heart disease with heart failure; I50.9 Heart failure, unspecified

== ENCOUNTER 2018-03-07 09:31 | Emergency (ER) | payer MEDICARE, OTHER ==
[2018-03-07 10:38] LABS: BASO % 0.3 % (0.0-1.0); EOS # 0.2 10^3/uL (0.0-0.50); EOS % 1.8 % (0.0-3.0); HEMATOCRIT 42.1 % (42.0-52.0); HEMOGLOBIN 13.2 g/dl (13.5-17.5); IMMATURE GRANULOCYTE % 0.6 % (0-3.0); LYMPH # 0.8 10^3/uL (1.5-4.5); LYMPH % 8.4 % (24.0-44.0); MEAN CORPUSCULAR HEMOGLOBIN 27.8 pg (27.0-33.0); MEAN CORPUSCULAR HGB CONC 31.4 g/dl (32.0-36.5); MEAN CORPUSCULAR VOLUME 88.8 fl (80.0-96.0); MONO # 0.7 10^3/uL (0.0-0.8); MONO % 7.7 % (0.0-5.0); NEUTROPHILS # 7.6 10^3/uL (1.8-7.7); NEUTROPHILS % 81.2 % (36.0-66.0); PLATELET COUNT, AUTOMATED 202 10^3/uL (150-450); RED BLOOD COUNT 4.74 10^6/uL (4.30-6.10); RED CELL DISTRIBUTION WIDTH 15.7 % (11.5-14.5); WHITE BLOOD COUNT 9.4 10^3/uL (4.0-10.0)
[2018-03-07 11:20] LABS: ANION GAP 9 MEQ/L (8-16); BLOOD UREA NITROGEN 20 MG/DL (7-18); CALCIUM LEVEL 8.8 MG/DL (8.8-10.2); CARBON DIOXIDE LEVEL 29 MEQ/L (21-32); CHLORIDE LEVEL 103 MEQ/L (98-107); CPK CREATINE PHOSPHOKINASE 151 U/L (39-308); CREATININE FOR GFR 0.83 MG/DL (0.70-1.30); GLOMERULAR FILTRATION RATE > 60.0 (>42); GLUCOSE, FASTING 160 MG/DL (70-100); MB/CK RELATIVE INDEX 2.05 (< OR =4); POTASSIUM SERUM 4.2 MEQ/L (3.5-5.1); SODIUM LEVEL 141 MEQ/L (136-145); TROPONIN I < 0.02 NG/ML (< 0.10)
[2018-03-07 11:26] LABS: ABG BASE EXCESS -1.7 (-2.0-2.0); ABG HCO3 22.3 MEQ/L (22.0-26.0); ABG O2 SATURATION 92.3 % (95.0-99.0); ABG PARTIAL PRESSURE CO2 35.6 mmHg (35.0-45.0); ABG PARTIAL PRESSURE O2 66.4 mmHg (75.0-100.0); ABG TOTAL CO2 23.4 MEQ/L (23.0-31.0); ABG pH (ARTERIAL) 7.415 UNITS (7.350-7.450)
[2018-03-07 14:01] LABS: CPK CREATINE PHOSPHOKINASE 151 U/L (39-308); MB/CK RELATIVE INDEX 1.85 (< OR =4); TROPONIN I < 0.02 NG/ML (< 0.10)
== END 2018-03-07 16:54 | disposition short-term general hospital (02) ==
LOC: M ED 09:31
DX: I25.110 Atherosclerotic heart disease of native coronary artery with unstable angina pectoris (principal); I48.0 Paroxysmal atrial fibrillation; R06.02 Shortness of breath; I49.3 Ventricular premature depolarization; R00.0 Tachycardia, unspecified; J44.9 Chronic obstructive pulmonary disease, unspecified; G47.33 Obstructive sleep apnea (adult) (pediatric); Z95.5 Presence of coronary angioplasty implant and graft; Z88.0 Allergy status to penicillin; Z88.8 Allergy status to other drugs, medicaments and biological substances; Z88.1 Allergy status to other antibiotic agents; Z91.018 Allergy to other foods; Z79.899 Other long term (current) drug therapy; Z79.84 Long term (current) use of oral hypoglycemic drugs; Z79.82 Long term (current) use of aspirin; Z79.01 Long term (current) use of anticoagulants
CPT/HCPCS: 71045

== ENCOUNTER 2019-03-05 15:00 | Inpatient (IN) | payer MEDICARE, OTHER ==
[~2019-03-05] VITALS: Ht 182.9 cm; Wt 108.3 kg
[~2019-03-05 15:00] MED LIST: AMAR1TAB PO; ASPI-1 PO; ASPI81TA26 PO; ASPI81TA85 PO; CARD40TA PO; CARV12.5 PO; COMBAER6 INH; CORE6.25 PO; ELIQ5TAB PO; FINA5TAB2 PO; FISH1000 PO; FISH7.5C PO; FLOM0.4C39 PO; GLIM2TAB PO; HYDR12.55 PO; INCR1INH IN; IPRA0.00 INH; IPRAINH INH; LISI-538 PO; LISI10TA4 PO; MAGN250T9 PO; METF10004 PO; MM S100C PO; MULTCAP11 PO; PRAV40TA2 PO; PRAV80TA PO; PROBCAP14 PO; VITA1TAB23 PO
[2019-03-05 15:53] LABS: BASO # 0.1 10^3/uL (0.0-0.2); BASO % 0.4 % (0.0-1.0); EOS % 0.1 % (0.0-3.0); HEMATOCRIT 38.2 % (42.0-52.0); HEMOGLOBIN 10.5 g/dl (13.5-17.5); LYMPH # 0.5 10^3/uL (1.5-5.0); LYMPH % 3.3 % (24.0-44.0); MEAN CORPUSCULAR HEMOGLOBIN 21.8 pg (27.0-33.0); MEAN CORPUSCULAR HGB CONC 27.5 g/dl (32.0-36.5); MEAN CORPUSCULAR VOLUME 79.3 fl (80.0-96.0); MONO # 0.6 10^3/uL (0.0-0.8); MONO % 4.2 % (0.0-5.0); NEUTROPHILS # 12.6 10^3/uL (1.5-8.5); NEUTROPHILS % 91.3 % (36.0-66.0); PLATELET COUNT, AUTOMATED 243 10^3/uL (150-450); RED BLOOD COUNT 4.82 10^6/uL (4.30-6.10); WHITE BLOOD COUNT 13.8 10^3/uL (4.0-10.0)
[2019-03-05 15:58] LABS: INR 1.37; PROTHROMBIN TIME 16.6 SECONDS (11.8-14.0)
[2019-03-05] MEDS ORDERED: ZANT150T40 PO (15:58)
[2019-03-05] MEDS ORDERED: ZYRTTAB8 PO (15:58)
[2019-03-05] MEDS ORDERED: ATRO0.063 INH (15:58)
[2019-03-05] MEDS ORDERED: ADV500INH INH (15:58)
[2019-03-05] MEDS ORDERED: PRED10PA PO (15:58)
[2019-03-05] MEDS ORDERED: MUCI30TA5 PO (15:58)
[2019-03-05 16:11] LABS: BLOOD UREA NITROGEN 32 MG/DL (7-18); CALCIUM LEVEL 9.1 MG/DL (8.8-10.2); CARBON DIOXIDE LEVEL 34 MEQ/L (21-32); CHLORIDE LEVEL 102 MEQ/L (98-107); CK-MB VALUE MASS 2.7 NG/ML (<3.6); CPK CREATINE PHOSPHOKINASE 44 U/L (39-308); CREATININE FOR GFR 0.99 MG/DL (0.70-1.30); GLOMERULAR FILTRATION RATE > 60.0 (>42); GLUCOSE, FASTING 102 MG/DL (70-100); MB/CK RELATIVE INDEX 6.14 (< OR =4); POTASSIUM SERUM 4.5 MEQ/L (3.5-5.1); SODIUM LEVEL 144 MEQ/L (136-145); TROPONIN I 0.06 NG/ML (< 0.10)
[2019-03-05] MEDS ORDERED: FUROSEMIDE 40 MG/4 ML VIAL (J1940) IV ONE (16:30)
[2019-03-05 16:38] LABS: ALBUMIN 2.9 GM/DL (3.2-5.2); ALT/SGPT 33 U/L (12-78); BILIRUBIN,DIRECT 0.2 MG/DL (0.0-0.2); BILIRUBIN,TOTAL 0.5 MG/DL (0.2-1.0); NT-PRO BNP 2960 PG/ML (<450); TOTAL PROTEIN 6.2 GM/DL (6.4-8.2)
[2019-03-05] MEDS ORDERED: PRED10TA2 PO (17:23)
[2019-03-05] MEDS ORDERED: CVS250TA3 PO (17:23)
[2019-03-05] MEDS ORDERED: ALBU83IN INH ×2 (17:23→17:28)
[2019-03-05] MEDS ORDERED: PHEN15SP NARES (17:23)
[2019-03-05] MEDS ORDERED: LEVA12INH INH (17:23)
[2019-03-05] MEDS ORDERED: MULTCHW12 PO (17:23)
[2019-03-05] MEDS ORDERED: CARD40TA PO (17:27)
[2019-03-05] MEDS: HumaLOG INSULIN (NovoLOG) PER UNIT SC SCH ×2 (17:30→21:00)
--- NOTE | 2019-03-05 17:51 | ECGEPIP ---
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
[2019-03-05] MEDS ORDERED: ACETAMINOPHEN TAB 650MG DOSE (2X325MG) PO PRN (18:00)
--- NOTE | 2019-03-05 18:06 | HPEPDOC ---
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 fib (on Eliquis), Diastolic CHF, HTN, DLP, NIDDM2, AAA s/p repair (2017), NEFTALY (not on CPAP), COPD on 3-4L of O2, RLS, BPH who presented to the emergency room with complaints of shortness of breath that has been progressively worsening over 2-3 months. Patient has reported that he is seeing his primary care provider as well as cardiology and pulmonology. Upon visiting pulmonology today, he was advised that he had signs of fluid overload and was directed to come to the emergency room for further evaluation. Patient denies any chest pain, palpitations or any significant cough. . He does report a mild cough that occurs intermittently with very small amounts of yousif colored sputum. He denies any fevers or chills over the last 2 weeks, but does report progressively worsening lower extremity swelling over the duration of 2 months. He denies nausea, vomiting, abdominal pain, constipation, diarrhea, or urinary discomfort. Patient reports that his appetite is relatively poor but denies any significant change in weight. Home Medications Scheduled Albuterol Sulf (Albuterol Sulfate) 2.5 Mg/3 Ml Vial.neb, 1 VIAL INH BID, (Reported) Apixaban (Eliquis) 5 Mg Tab, 5 MG PO BID, (Reported) Aspirin (Aspirin EC) 81 Mg Tab, 81 MG PO DAILY, (Reported) Carvedilol (Coreg) 6.25 Mg Tab, 6.25 MG PO BID, (Reported) Docusate Sodium (Stool Softener) 100 Mg Cap, 100 MG PO QHS, (Reported) Finasteride (Finasteride) 5 Mg Tab, 5 MG PO DAILY, (Reported) Folic Acid/Multivit-Min/Lutein (Multi-Vitamin Gummies) 1 Each Tab.chew, 1 TAB PO DAILY, (Reported) Glimepiride (Amaryl) 1 Mg Tab, 1 MG PO DAILY, (Reported) Ipratropium [place] (Atrovent Hfa) 12.9 Gm Hfa.aer.ad, 2 PUFF INH QID, (Reported) Lactobacillus Acidophilus (Probiotic) 1 Cap Cap, 1 CAP PO BID, (Reported) Levalbuterol Hydrochloride (Xopenex Concentrate) 1.25 Mg/0.5 Ml Vial.neb, 1 VIAL INH TID, (Reported) Magnesium (Magnesium) 250 Mg Tablet, 250 MG PO QHS, (Reported) Metformin HCl (Metformin HCl) 1,000 Mg Tab, 1,000 MG PO BID, (Reported) [place]-3/Dha/Epa/Fish Oil (Fish Oil EC 1,000 mg Softgel) 1 Cap Cap, 1 CAP PO BID, (Reported) Phenylephrine HCl (Bao-Synephrine) 15 Ml Marshall, 1 SPRAY NARES BID, (Reported) Potassium Chloride (Potassium Chloride) 20 Meq Tablet.er, 40 MEQ PO DAILY Pravastatin Sodium (Pravachol) 80 Mg Tab, 80 MG PO QHS, (Reported) Prednisone (Prednisone) 5 Mg Tab.ds.pk, 5 MG PO DAILY Salmeterol/Fluticasone (Advair 500-50 Diskus) 1 Each Blst.w.dev, 1 PUFF INH BID, (Reported) Tamsulosin HCl (Flomax) 0.4 Mg Cap, 0.4 MG PO DAILY, (Reported) Torsemide (Torsemide) 5 Mg Tablet, 4 TAB PO BID Torsemide (Torsemide) 20 Mg Tablet, 1 TAB PO BID Replacement for torsemide 5mg (4 tablets) once available; STOP taking 5mg tablets once this prescription is available Scheduled PRN Albuterol Sulf (Albuterol Sulfate) 2.5 Mg/3 Ml Vial.neb, 1 VIAL INH Q6H PRN for SOB/WHEEZING, (Reported) Guaifenesin/Dextromethorphan (Mucinex Dm ER 600-30 mg Tablet) 1 Each Tab.er.12h, 1 TAB PO BIDP PRN for cough and congestion, (Reported) Allergies Coded Allergies: Penicillins (Verified Allergy, Unknown, 03/05/19) ciprofloxacin (Verified Allergy, Unknown, 03/05/19) sertraline (Verified Allergy, Unknown, 03/05/19) [place] (Unverified Adverse Reaction, Unknown, NAUSEA, 01/25/17) Past Medical History Medical History CAD s/p stent x3, 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 fib (on Eliquis), Diastolic CHF, HTN, DLP, NIDDM2, AAA s/p repair (2017), NEFTALY (not on CPAP), COPD on 3-4L of O2, RLS, BPH Surgical History Bilateral knee replacements Cataract repair bilaterally Coronary artery stent placement. 2000 Abdominal aortic aneurysm repair 2017 Pacemaker placement 2017 Family History - Patients family history significant for cardiac disease on his paternal side Social History - Denies the use of illicit drugs; occasionally drinks alcohol; has quit smoking in 1999 - Denies recent travel or sick contacts - Patient is from [place] Review of Systems Other systems 10 point review of systems complete, all negative otherwise stated in HPI Vital Signs - Vitals: BP 127/94, HR 84, RR 16, Sat 94%NC6L, Temp 97.6F - General: Lying in bed, No acute distress, Speaking in full sentences, AAOx3 - HEENT: NC, AT, PERRL - CVS: +S1S2, no appreciated murmurs - Lungs: Fair air entry bilaterally, bilateral crackles can be appreciated at the bases. No wheezing or rhonchi - Abdomen: Soft, Non-distended, Non-tender - Extremities: 2+ pitting edema bilaterally, No calf tenderness - Neuro: No focal motor or sensory deficit - Skin: No visible rashes Laboratory Data Labs 24H Laboratory Tests 2 03/05/19 15:29: Immature Granulocyte % (Auto) 0.7, White Blood Count 13.8H, Red Blood Count 4.82, Hemoglobin 10.5L, Hematocrit 38.2L, Mean Corpuscular Volume 79.3L, Mean Corpuscular Hemoglobin 21.8L, Mean Corpuscular Hemoglobin Concent 27.5L, Red Cell Distribution Width 18.9H, Platelet Count 243, Neutrophils (%) (Auto) 91.3H, Lymphocytes (%) (Auto) 3.3L, Monocytes (%) (Auto) 4.2, Eosinophils (%) (Auto) 0.1, Basophils (%) (Auto) 0.4, Neutrophils # (Auto) 12.6H, Lymphocytes # (Auto) 0.5L, Monocytes # (Auto) 0.6, Eosinophils # (Auto) 0.0, Basophils # (Auto) 0.1, Nucleated Red Blood Cells % (auto) 0.2H, Prothrombin Time 16.6H, Prothromb Time International Ratio 1.37, Anion Gap 8, Glomerular Filtration Rate > 60.0, Calcium Level 9.1, Aspartate Amino Transf (AST/SGOT) 17, Alanine Aminotransferase (ALT/SGPT) 33, Alkaline Phosphatase 51, Total Bilirubin 0.5, Direct Bilirubin 0.2, Total Creatine Kinase 44, Creatine Kinase MB 2.7, Creatine Kinase MB Relative Index 6.14H, Troponin I 0.06, FN-Fsb-G-Type Natriuretic Peptide 2960H, Total Protein 6.2L, Albumin 2.9L, Albumin/Globulin Ratio 0.88L CBC/BMP Laboratory Tests 03/05/19 15:29 Red Blood Count 4.82, Mean Corpuscular Volume 79.3 L, Mean Corpuscular Hemoglobin 21.8 L, Mean Corpuscular Hemoglobin Concent 27.5 L, Red Cell Di stribution Width 18.9 H, Neutrophils (%) (Auto) 91.3 H, Lymphocytes (%) (Auto) 3.3 L, Monocytes (%) (Auto) 4.2, Eosinophils (%) (Auto) 0.1, Basophils (%) (Auto) 0.4, Neutrophils # (Auto) 12.6 H, Lymphocytes # (Auto) 0.5 L, Monocytes # (Auto) 0.6, Eosinophils # (Auto) 0.0, Basophils # (Auto) 0.1 Microbiology Microbiology 03/05/19 Blood Culture, Received Pending Plan / VTE VTE Prophylaxis Ordered?: Yes Plan Plan Acute on chronic hypoxic respiratory failure - likely 2/2 multifactorial etiology - Acute decompensated diastolic CHF - Patient presented to the emergency room with complaints of shortness of breath and signs of fluid overload - Patient recently has completed outpatient echocardiogram; results are currently not available - BNP noted to be elevated - CXR; appears to show shines of fluid overload and pulmonary edema - Patient has received furosemide 40 IV in emergency room - Will get ECHO - Will continue with furosemide 40 IV every 8 hours to maintain net negative output - Chronic COPD, without evidence of acute exacerbation - Will continue with inhaled therapy as ordered - Will de-escalate prednisone therapy; reduced by 50% CAD s/p stent x3 - c/w ASA 81 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 fib - c/w rate control with carvedilol and diltiazem - c/w full anticoagulation with Eliquis HTN - c/w carvedilol - Will hold lisinopril and hydrochlorothiazide (re: starting furosemide) DLP - c/w Pravastatin NIDDM2 - will start ISS AAA s/p repair (2016) - Patient has reported that he has had annual imaging completed; most recent imaging had indicated increased in size - Patient reports that he has contacted his vascular surgeon in [place] foll owing up with them for further instructions NEFTALY (not on CPAP) RLS - c/w Magnesium supplementation BPH - c/w Tamsulosin and Finasteride DVT prophylaxis - c/w full anticoagulation with AMPARO Antony MD Mar 05, 2019 18:06
[2019-03-05] MEDS ORDERED: IPRATROPIUM 0.5MG/ALBUTEROL 2.5MG INH SOL UD 3ML (DUONEB)(J7620) NEB PRN (18:15)
[2019-03-05] MEDS ORDERED: DEXTROSE 50% 50 ML SYRINGE IV PRN (18:15)
[2019-03-05] MEDS ORDERED: GLUCAGON FOR INJ 1 MG VIAL (J1610) SC PRN (18:15)
[2019-03-05] MEDS ORDERED: GLUCOSE 4 GM CHEW TABLET PO PRN (18:15)
--- NOTE | 2019-03-05 19:07 | REP ---
CHEST, PORTABLE: AP portable view of the chest is performed. There is cardiomegaly. There is apparent vascular congestion with diffuse increase in interstitial markings. The findings are similar when compared to the prior study of 03/07/2018. There is some calcification and tortuosity of the thoracic aorta. The mediastinal silhouette is unchanged. Left dual lead pace maker is again noted. Electronically Signed by Marino Ford MD 03/06/2019 11:16 A
[2019-03-05 20:25] VITALS: BP 118/64
[2019-03-05] MEDS: IPRATROPIUM 0.5MG/ALBUTEROL 2.5MG INH SOL UD 3ML (DUONEB)(J7620) NEB SCH (20:44)
[2019-03-05] MEDS: CARVedilol 6.25 MG TAB PO SCH (21:36)
[2019-03-05] MEDS: FINASTERIDE 5 MG TAB PO SCH (21:36)
[2019-03-05] MEDS: APIXABAN 5 MG TAB (ELIQUIS) PO SCH (21:36)
[2019-03-05] MEDS: FUROSEMIDE 40 MG/4 ML VIAL (J1940) IV SCH (23:06)
[2019-03-06] VITALS (8 sets, daily range): BP systolic 103–171; BP diastolic 53–91
[2019-03-06] MEDS: IPRATROPIUM 0.5MG/ALBUTEROL 2.5MG INH SOL UD 3ML (DUONEB)(J7620) NEB SCH ×4 (00:38→20:06)
[2019-03-06 05:58] LABS: BASO # 0.1 10^3/uL (0.0-0.2); BASO % 0.5 % (0.0-1.0); EOS # 0.1 10^3/uL (0.0-0.5); EOS % 0.8 % (0.0-3.0); HEMATOCRIT 37.5 % (42.0-52.0); HEMOGLOBIN 10.4 g/dl (13.5-17.5); LYMPH # 1.1 10^3/uL (1.5-5.0); LYMPH % 8.2 % (24.0-44.0); MEAN CORPUSCULAR HEMOGLOBIN 21.5 pg (27.0-33.0); MEAN CORPUSCULAR HGB CONC 27.7 g/dl (32.0-36.5); MEAN CORPUSCULAR VOLUME 77.5 fl (80.0-96.0); MONO % 7.8 % (0.0-5.0); NEUTROPHILS # 10.9 10^3/uL (1.5-8.5); NEUTROPHILS % 82.2 % (36.0-66.0); PLATELET COUNT, AUTOMATED 228 10^3/uL (150-450); RED BLOOD COUNT 4.84 10^6/uL (4.30-6.10); WHITE BLOOD COUNT 13.3 10^3/uL (4.0-10.0)
[2019-03-06 06:28] LABS: BLOOD UREA NITROGEN 30 MG/DL (7-18); CALCIUM LEVEL 8.8 MG/DL (8.8-10.2); CARBON DIOXIDE LEVEL 39 MEQ/L (21-32); CHLORIDE LEVEL 98 MEQ/L (98-107); CREATININE FOR GFR 0.94 MG/DL (0.70-1.30); GLOMERULAR FILTRATION RATE > 60.0 (>42); GLUCOSE, FASTING 115 MG/DL (70-100); POTASSIUM SERUM 3.5 MEQ/L (3.5-5.1); SODIUM LEVEL 141 MEQ/L (136-145)
[2019-03-06] MEDS: FUROSEMIDE 40 MG/4 ML VIAL (J1940) IV SCH ×3 (08:50→23:50)
[2019-03-06] MEDS: predniSONE 10 MG TAB PO SCH (08:51)
[2019-03-06] MEDS: HumaLOG INSULIN (NovoLOG) PER UNIT SC SCH ×4 (08:51→20:24)
[2019-03-06] MEDS: ASPIRIN 81 MG ENTERIC TAB PO SCH (08:51)
[2019-03-06] MEDS: APIXABAN 5 MG TAB (ELIQUIS) PO SCH ×2 (08:51→20:27)
[2019-03-06] MEDS: TAMSULOSIN 0.4 MG CAP PO SCH (08:51)
[2019-03-06] MEDS: CARVedilol 6.25 MG TAB PO SCH ×2 (08:52→20:27)
--- NOTE | 2019-03-06 11:16 | IPNPDOC ---
Text Note Date of Service The patient was seen on 03/06/19. 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 fib (on Eliquis), Diastolic CHF, HTN, DLP, NIDDM2, AAA s/p repair (2017), NEFTALY (not on CPAP), COPD on 3-4L of O2, RLS, BPH who presented to the emergency room with complaints of shortness of breath that has been progressively worsening over 2-3 months. Patient has reported that he is seeing his primary care provider as well as cardiology and pulmonology. Patient was sent to the emergency room for further evaluation for suspected fluid overload from diastolic heart failure. . He was admitted to the hospitalist service for further evaluation and treatment. Patient was seen and examined at the bedside. . Currently, patient reports that he is feeling slightly better. His oxygenation requirements have improved. He denies any chest pain, palpitations or cough. Denies nausea, vomiting, abdominal pain, diarrhea or discomfort with urination. Objective: Vitals (See below) General: Lying in bed, no acute distress, comfortable, AAOx3 HEENT: NC, AT CVS: RRR, +S1S2 Lungs: Fair air entry b/l, crackles can be appreciated at bilateral lung bases, no rhonchi or wheezing Abdomen: Soft, ND, NT Extremities: 2+ pitting edema bilaterally , - Calf tenderness Assessment and plan: Acute on chronic hypoxic respiratory failure - likely 2/2 multifactorial etiology - Acute decompensated diastolic CHF - Clinically patient has reported improvement in her breathing - Physical still reveal signs of gross fluid overload - BNP noted to be elevated on admission - CXR 03/05: Apparent vascular congestion with diffuse increase in interstitial markings - ECHO pending - c/w furosemide 40 IV every 8 hours to maintain net negative output - Chronic COPD, without evidence of acute exacerbation - c/w inhaled therapy as ordered - c/w reduced dose of prednisone 10 mg CAD s/p stent x3 - c/w ASA 81 PM 2/2 First degree AV block A. fib - c/w rate control with carvedilol and diltiazem - c/w full anticoagulation with Eliquis HTN - BP moderately elevated - c/w carvedilol - Will reintroduce lisinopril DLP - c/w Pravastatin NIDDM2 - c/w ISS AAA s/p repair (2017) - Patient has reported that he has had annual imaging completed; most recent imaging had indicated increased in size - Patient reports that he has contacted his vascular surgeon in [place] following up with them for further instructions NEFTALY (not on CPAP) RLS - c/w Magnesium supplementation BPH - c/w Tamsulosin and Finasteride DVT prophylaxis - c/w full anticoagulation with Eliquis Disposition: - Continue with furosemide to maintain negative balance. Awaiting for patient to become euvolemic VS,Johanbone, I+O VS, Fishbone, I+O Laboratory Tests 03/05/19 15:29 Red Blood Count 4.82, Mean Corpuscular Volume 79.3 L, Mean Corpuscular Hemoglobin 21.8 L, Mean Corpuscular Hemoglobin Concent 27.5 L, Red Cell Distribution Width 18.9 H, Neutrophils (%) (Auto) 91.3 H, Lymphocytes (%) (Auto) 3.3 L, Monocytes (%) (Auto) 4.2, Eosinophils (%) (Auto) 0.1, Basophils (%) (Auto) 0.4, Neutrophils # (Auto) 12.6 H, Lymphocytes # (Auto) 0.5 L, Monocytes # (Auto) 0.6, Eosinophils # (Auto) 0.0, Basophils # (Auto) 0.1 03/06/19 05:39 Red Blood Count 4.84, Mean Corpuscular Volume 77.5 L, Mean Corpuscular Hemoglobin 21.5 L, Mean Corpuscular Hemoglobin Concent 27.7 L, Red Cell Distribution Width 18.6 H, Neutrophils (%) (Auto) 82.2 H, Lymphocytes (%) (Auto) 8.2 L, Monocytes (%) (Auto) 7.8 H, Eosinophils (%) (Auto) 0.8, Basophils (%) (Auto) 0.5, Neutrophils # (Auto) 10.9 H, Lymphocytes # (Auto) 1.1 L, Monocytes # (Auto) 1.0 H, Eosinophils # (Auto) 0.1, Basophils # (Auto) 0.1, Calcium Level 8.8 Vital Signs Date Time Temp Pulse Resp B/P (MAP) Pulse Ox O2 Delivery O2 Flow Rate FiO2 03/06/19 08:52 76 171/91 03/06/19 08:00 6.0 03/06/19 07:00 97.6 18 94 03/05/19 20:00 High Flow Cannula I&O- Last 24 Hours up to 6 AM 03/06/19 06:00 Intake Total 300 ml Output Total 2050 ml Balance -1750 ml AMPARO LO MD Mar 06, 2019 11:16
[2019-03-06] MEDS ORDERED: LISINOPRIL 5 MG TAB PO ONE (11:30)
[2019-03-06] MEDS ORDERED: SLF 3 ML SYR IV PRN (16:45)
[2019-03-06] MEDS: SLF 3 ML SYR IV SCH (20:24)
[2019-03-06] MEDS: FINASTERIDE 5 MG TAB PO SCH (20:27)
[2019-03-07] VITALS (13 sets, daily range): BP systolic 104–141; BP diastolic 57–83; O2SAT 86–97
[2019-03-07] MEDS: IPRATROPIUM 0.5MG/ALBUTEROL 2.5MG INH SOL UD 3ML (DUONEB)(J7620) NEB SCH ×4 (02:00→20:00)
[2019-03-07] MEDS: SLF 3 ML SYR IV SCH ×3 (04:29→22:17)
[2019-03-07 06:24] LABS: BASO # 0.1 10^3/uL (0.0-0.2); BASO % 0.4 % (0.0-1.0); EOS # 0.1 10^3/uL (0.0-0.5); EOS % 1.1 % (0.0-3.0); HEMATOCRIT 38.1 % (42.0-52.0); HEMOGLOBIN 10.5 g/dl (13.5-17.5); LYMPH # 0.8 10^3/uL (1.5-5.0); LYMPH % 6.3 % (24.0-44.0); MEAN CORPUSCULAR HEMOGLOBIN 21.8 pg (27.0-33.0); MEAN CORPUSCULAR HGB CONC 27.6 g/dl (32.0-36.5); MEAN CORPUSCULAR VOLUME 79.2 fl (80.0-96.0); MONO % 8.1 % (0.0-5.0); NEUTROPHILS # 10.1 10^3/uL (1.5-8.5); NEUTROPHILS % 83.6 % (36.0-66.0); PLATELET COUNT, AUTOMATED 231 10^3/uL (150-450); RED BLOOD COUNT 4.81 10^6/uL (4.30-6.10)
[2019-03-07 06:47] LABS: BLOOD UREA NITROGEN 27 MG/DL (7-18); CALCIUM LEVEL 8.6 MG/DL (8.8-10.2); CARBON DIOXIDE LEVEL 40 MEQ/L (21-32); CHLORIDE LEVEL 95 MEQ/L (98-107); CREATININE FOR GFR 0.89 MG/DL (0.70-1.30); GLOMERULAR FILTRATION RATE > 60.0 (>42); GLUCOSE, FASTING 128 MG/DL (70-100); POTASSIUM SERUM 3.2 MEQ/L (3.5-5.1); SODIUM LEVEL 139 MEQ/L (136-145)
[2019-03-07] MEDS ORDERED: POTASSIUM CHLORIDE 10 MEQ SR TABLET PO ONE (07:15)
[2019-03-07] MEDS: ASPIRIN 81 MG ENTERIC TAB PO SCH (08:17)
[2019-03-07] MEDS: HumaLOG INSULIN (NovoLOG) PER UNIT SC SCH ×4 (08:17→21:00)
[2019-03-07] MEDS: FUROSEMIDE 40 MG/4 ML VIAL (J1940) IV SCH ×2 (08:17→16:38)
[2019-03-07] MEDS: APIXABAN 5 MG TAB (ELIQUIS) PO SCH ×2 (08:18→22:15)
[2019-03-07] MEDS: CARVedilol 6.25 MG TAB PO SCH ×2 (08:18→22:15)
[2019-03-07] MEDS: TAMSULOSIN 0.4 MG CAP PO SCH (08:18)
[2019-03-07] MEDS: predniSONE 10 MG TAB PO SCH (08:18)
[2019-03-07] MEDS ORDERED: LISINOPRIL 5 MG TAB PO SCH (09:00)
--- NOTE | 2019-03-07 10:14 | IPNPDOC ---
Text Note Date of Service The patient was seen on 03/07/19. 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 fib (on Eliquis), Diastolic CHF, HTN, DLP, NIDDM2, AAA s/p repair (2017), NEFTALY (not on CPAP), COPD on 3-4L of O2, RLS, BPH who presented to the emergency room with complaints of shortness of breath that has been progressively worsening over 2-3 months. Patient has reported that he is seeing his primary care provider as well as cardiology and pulmonology. Patient was sent to the emergency room for further evaluation for suspected fluid overload from diastolic heart failure. . He was admitted to the hospitalist service for further evaluation and treatment. Patient was seen and examined at the bedside. Currently patient reports that he is feeling better. Overnight there was difficulty determining patient's saturation and his supplemental oxygen was increased. Currently, he remains negative fluid balance and reports that his lower extremity swelling has improved. He denies any chest pain, palpitations or cough. Denies nausea, vomiting, abdominal pain or diarrhea. Objective: Vitals (See below) General: Lying in bed, no acute distress, comfortable, AAOx3 HEENT: NC, AT CVS: RRR, +S1S2 Lungs: Air entry remains fair bilaterally, with evidence of crackles at bilateral lung bases. No rhonchi or wheezing Abdomen: Soft, nondistended and nontender Extremities: 2+ pitting edema bilaterally still persists, - Calf tenderness Assessment and plan: Acute on chronic hypoxic respiratory failure - likely 2/2 multifactorial etiology - Acute decompensated diastolic CHF - Reports improvement of lower extremity swelling - BNP noted to be elevated on admission - CXR 03/05: Apparent vascular congestion with diffuse increase in interstitial markings - ECHO report received from outpatient setting; ejection fraction appears to be preserved; diastolic function could not be evaluated at the time - c/w furosemide 40 IV every 8 hours to maintain net negative output; currently has been negative fluid balance of -3.2 L - Chronic COPD, without evidence of acute exacerbation - c/w inhaled therapy as ordered - c/w reduced dose of prednisone 10 mg; will taper off prednisone completely over the next 2 weeks CAD s/p stent x3 - c/w ASA 81 PM 2/2 First degree AV block A. fib - c/w rate control with carvedilol and diltiazem - c/w full anticoagulation with Eliquis HTN - BP well elevated - c/w carvedilol and Lisinopril with holding parameters DLP - c/w Pravastatin NIDDM2 - c/w ISS AAA s/p repair (2017) - Patient has reported that he has had annual imaging completed; most recent imaging had indicated increased in size - Patient reports that he has contacted his vascular surgeon in [place] following up with them for further instructions NEFTALY (not on CPAP) RLS - c/w Magnesium supplementation BPH - c/w Tamsulosin and Finasteride DVT prophylaxis - c/w full anticoagulation with Eliquis Disposition: - Continue with furosemide to maintain negative balance. - Awaiting euvolemic VS,Nicole, I+O VS, Nicole, I+O Laboratory Tests 03/07/19 05:55 Red Blood Count 4.81, Mean Corpuscular Volume 79.2 L, Mean Corpuscular Hemoglobin 21.8 L, Mean Corpuscular Hemoglobin Concent 27.6 L, Red Cell Distribution Width 18.6 H, Neutrophils (%) (Auto) 83.6 H, Lymphocytes (%) (Auto) 6.3 L, Monocytes (%) (Auto) 8.1 H, Eosinophils (%) (Auto) 1.1, Basophils (%) (Auto) 0.4, Neutrophils # (Auto) 10.1 H, Lymphocytes # (Auto) 0.8 L, Monocytes # (Auto) 1.0 H, Eosinophils # (Auto) 0.1, Basophils # (Auto) 0.1, Calcium Level 8.6 L Vital Signs Date Time Temp Pulse Resp B/P (MAP) Pulse Ox O2 Delivery O2 Flow Rate FiO2 03/07/19 10:00 89 Nasal Cannula 8.0 03/07/19 08:18 81 127/83 03/07/19 08:00 97.8 18 I&O- Last 24 Hours up to 6 AM 03/07/19 06:00 Intake Total 2040 ml Output Total 3525 ml Balance -1485 ml AMPARO LO MD Mar 07, 2019 10:14
[2019-03-07] MEDS ORDERED: NYSTATIN 100,000 UNITS/GM TOPICAL PWD 15 GM TOP PRN (13:00)
[2019-03-07] MEDS: SODIUM CHLORIDE NASAL 0.65% SPRAY BTL (OCEAN) PRN (17:05)
[2019-03-07] MEDS: FINASTERIDE 5 MG TAB PO SCH (22:15)
[2019-03-08] VITALS (8 sets, daily range): BP systolic 106–125; BP diastolic 69–77; O2SAT 89–96
[2019-03-08] MEDS: IPRATROPIUM 0.5MG/ALBUTEROL 2.5MG INH SOL UD 3ML (DUONEB)(J7620) NEB SCH ×4 (03:12→18:39)
[2019-03-08 06:09] LABS: BASO # 0.1 10^3/uL (0.0-0.2); BASO % 0.5 % (0.0-1.0); EOS # 0.2 10^3/uL (0.0-0.5); EOS % 1.3 % (0.0-3.0); HEMOGLOBIN 11.1 g/dl (13.5-17.5); LYMPH % 7.9 % (24.0-44.0); MEAN CORPUSCULAR HEMOGLOBIN 21.6 pg (27.0-33.0); MEAN CORPUSCULAR HGB CONC 27.1 g/dl (32.0-36.5); MEAN CORPUSCULAR VOLUME 79.6 fl (80.0-96.0); MONO # 1.1 10^3/uL (0.0-0.8); MONO % 8.6 % (0.0-5.0); NEUTROPHILS # 10.4 10^3/uL (1.5-8.5); NEUTROPHILS % 81.2 % (36.0-66.0); PLATELET COUNT, AUTOMATED 260 10^3/uL (150-450); RED BLOOD COUNT 5.15 10^6/uL (4.30-6.10); WHITE BLOOD COUNT 12.8 10^3/uL (4.0-10.0)
[2019-03-08] MEDS: SLF 3 ML SYR IV SCH ×3 (06:25→22:00)
[2019-03-08 06:29] LABS: BLOOD UREA NITROGEN 30 MG/DL (7-18); CALCIUM LEVEL 8.7 MG/DL (8.8-10.2); CARBON DIOXIDE LEVEL 39 MEQ/L (21-32); CHLORIDE LEVEL 96 MEQ/L (98-107); GLOMERULAR FILTRATION RATE > 60.0 (>42); GLUCOSE, FASTING 148 MG/DL (70-100); MAGNESIUM LEVEL 2.2 MG/DL (1.8-2.4); POTASSIUM SERUM 3.6 MEQ/L (3.5-5.1); SODIUM LEVEL 140 MEQ/L (136-145)
[2019-03-08] MEDS: HumaLOG INSULIN (NovoLOG) PER UNIT SC SCH ×4 (08:32→21:00)
[2019-03-08] MEDS: FUROSEMIDE 40 MG/4 ML VIAL (J1940) IV SCH ×3 (08:32→17:05)
[2019-03-08] MEDS: TAMSULOSIN 0.4 MG CAP PO SCH (08:33)
[2019-03-08] MEDS: predniSONE 10 MG TAB PO SCH (08:33)
[2019-03-08] MEDS: APIXABAN 5 MG TAB (ELIQUIS) PO SCH ×2 (08:33→21:07)
[2019-03-08] MEDS: ASPIRIN 81 MG ENTERIC TAB PO SCH (08:33)
[2019-03-08] MEDS: CARVedilol 6.25 MG TAB PO SCH ×2 (08:35→21:08)
--- NOTE | 2019-03-08 13:23 | IPNPDOC ---
Text Note Date of Service The patient was seen on 03/08/19. 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 fib (on Eliquis), Diastolic CHF, HTN, DLP, NIDDM2, AAA s/p repair (2017), NEFTALY (not on CPAP), COPD on 3-4L of O2, RLS, BPH who presented to the emergency room with complaints of shortness of breath that has been progressively worsening over 2-3 months. Patient has reported that he is seeing his primary care provider as well as cardiology and pulmonology. Patient was sent to the emergency room for further evaluation for suspected fluid overload from diastolic heart failure. . He was admitted to the hospitalist service for further evaluation and treatment. Patient was seen and examined at the bedside. Patient reports that he is still on oxygen. . He denies chest pain or palpitations. Still reports shortness of breath with exertion. Denies any nausea, vomiting, abdominal pain or diarrhea. Objective: Vitals (See below) General: Lying in bed, no acute distress, comfortable, AAOx3 HEENT: NC, AT CVS: +S1S2 Lungs: Air entry is fair bilaterally without any rhonchi or wheezing. There still appears to be crackles at bilateral lung bases Abdomen: Abdomen is soft, without any distention or tenderness Extremities: Lower extremities reveal 2+ pitting edema bilaterally, - Calf tenderness Assessment and plan: Acute on chronic hypoxic respiratory failure - likely 2/2 multifactorial etiolo gy - Acute decompensated diastolic CHF - Patient reports that there has not been any significant improvement of swelling since yesterday - Patient has indicated that he still gets severely short of breath with ambulation to the bathroom - BNP noted to be elevated on admission - CXR 03/05: Apparent vascular congestion with diffuse increase in interstitial markings - ECHO report received from outpatient setting; ejection fraction appears to be preserved; diastolic function could not be evaluated at the time - Will add fluid restrictions of 1800 mL daily and will add salt restriction - c/w furosemide 40 IV every 8 hours to maintain net negative output; currently has been negative fluid balance of -3.2 L - Chronic COPD, without evidence of acute exacerbation - c/w inhaled therapy as ordered - c/w reduced dose of prednisone 10 mg; will taper off prednisone completely over the next 2 weeks CAD s/p stent x3 - c/w ASA 81 PM 2/2 First degree AV block A. fib - c/w rate control with carvedilol and diltiazem - c/w full anticoagulation with Eliquis HTN - BP well elevated - c/w carvedilol and Lisinopril with holding parameters DLP - c/w Pravastatin NIDDM2 - c/w ISS AAA s/p repair (2016) - Patient has reported that he has had annual imaging completed; most recent imaging had indicated increased in size - Patient reports that he has contacted his vascular surgeon in [place] following up with them for further instructions NEFTALY (not on CPAP) RLS - c/w Magnesium supplementation BPH - c/w Tamsulosin and Finasteride DVT prophylaxis - c/w full anticoagulation with Eliquis Disposition: - Continue with furosemide to maintain negative balance. - Awaiting euvolemic VS,Fishbone, I+O VS, Fishbone, I+O Laboratory Tests 03/08/19 05:30 Red Blood Count 5.15, Mean Corpuscular Volume 79.6 L, Mean Corpuscular Hemoglobin 21.6 L, Mean Corpuscular Hemoglobin Concent 27.1 L, Red Cell Distribution Width 18.7 H, Neutrophils (%) (Auto) 81.2 H, Lymphocytes (%) (Auto) 7.9 L, Monocytes (%) (Auto) 8.6 H, Eosinophils (%) (Auto) 1.3, Basophils (%) (Auto) 0.5, Neutrophils # (Auto) 10.4 H, Lymphocytes # (Auto) 1.0 L, Monocytes # (Auto) 1.1 H, Eosinophils # (Auto) 0.2, Basophils # (Auto) 0.1, Calcium Level 8.7 L Vital Signs Date Time Temp Pulse Resp B/P (MAP) Pulse Ox O2 Delivery O2 Flow Rate FiO2 03/08/19 08:35 94 120/72 03/08/19 06:00 97.0 18 91 03/08/19 04:35 Nasal Cannula 8.0 I&O- Last 24 Hours up to 6 AM 03/08/19 05:59 Intake Total 2410 ml Output Total 1700 ml Balance 710 ml AMPARO LO MD Mar 08, 2019 13:23
[2019-03-08] MEDS: FINASTERIDE 5 MG TAB PO SCH (21:07)
[2019-03-09 00:43] VITALS: BP 130/80
[2019-03-09] MEDS: FUROSEMIDE 40 MG/4 ML VIAL (J1940) IV SCH ×4 (00:43→23:38)
[2019-03-09 02:00] VITALS: O2SAT 92
[2019-03-09] MEDS: IPRATROPIUM 0.5MG/ALBUTEROL 2.5MG INH SOL UD 3ML (DUONEB)(J7620) NEB SCH ×4 (02:21→21:01)
[2019-03-09] MEDS: SLF 3 ML SYR IV SCH ×3 (04:56→20:41)
[2019-03-09 06:00] VITALS: BP 127/77
[2019-03-09 06:28] LABS: BASO # 0.1 10^3/uL (0.0-0.2); BASO % 0.4 % (0.0-1.0); EOS # 0.2 10^3/uL (0.0-0.5); EOS % 1.1 % (0.0-3.0); HEMATOCRIT 40.3 % (42.0-52.0); HEMOGLOBIN 11.1 g/dl (13.5-17.5); LYMPH # 0.8 10^3/uL (1.5-5.0); LYMPH % 5.3 % (24.0-44.0); MEAN CORPUSCULAR HEMOGLOBIN 21.4 pg (27.0-33.0); MEAN CORPUSCULAR HGB CONC 27.5 g/dl (32.0-36.5); MEAN CORPUSCULAR VOLUME 77.6 fl (80.0-96.0); MONO # 1.2 10^3/uL (0.0-0.8); MONO % 8.1 % (0.0-5.0); NEUTROPHILS # 12.4 10^3/uL (1.5-8.5); NEUTROPHILS % 84.7 % (36.0-66.0); PLATELET COUNT, AUTOMATED 255 10^3/uL (150-450); RED BLOOD COUNT 5.19 10^6/uL (4.30-6.10); WHITE BLOOD COUNT 14.6 10^3/uL (4.0-10.0)
[2019-03-09 06:58] LABS: BLOOD UREA NITROGEN 26 MG/DL (7-18); CALCIUM LEVEL 8.8 MG/DL (8.8-10.2); CARBON DIOXIDE LEVEL 39 MEQ/L (21-32); CHLORIDE LEVEL 94 MEQ/L (98-107); CREATININE FOR GFR 0.85 MG/DL (0.70-1.30); GLOMERULAR FILTRATION RATE > 60.0 (>42); GLUCOSE, FASTING 151 MG/DL (70-100); MAGNESIUM LEVEL 2.1 MG/DL (1.8-2.4); POTASSIUM SERUM 3.3 MEQ/L (3.5-5.1); SODIUM LEVEL 139 MEQ/L (136-145)
[2019-03-09] MEDS ORDERED: POTASSIUM CHLORIDE 10 MEQ SR TABLET PO ONE (07:30)
[2019-03-09] MEDS: HumaLOG INSULIN (NovoLOG) PER UNIT SC SCH ×4 (07:53→21:00)
[2019-03-09] MEDS: APIXABAN 5 MG TAB (ELIQUIS) PO SCH ×2 (09:25→20:39)
[2019-03-09] MEDS: predniSONE 10 MG TAB PO SCH (09:25)
[2019-03-09] MEDS: TAMSULOSIN 0.4 MG CAP PO SCH (09:25)
[2019-03-09] MEDS: ASPIRIN 81 MG ENTERIC TAB PO SCH (09:25)
[2019-03-09] MEDS: CARVedilol 6.25 MG TAB PO SCH ×2 (09:26→20:40)
[2019-03-09 11:10] VITALS: O2SAT 93
--- NOTE | 2019-03-09 11:23 | IPNPDOC ---
Text Note Date of Service The patient was seen on 03/09/19. 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 fib (on Eliquis), Diastolic CHF, HTN, DLP, NIDDM2, AAA s/p repair (2017), NEFTALY (not on CPAP), COPD on 3-4L of O2, RLS, BPH who presented to the emergency room with complaints of shortness of breath that has been progressively worsening over 2-3 months. Patient has reported that he is seeing his primary care provider as well as cardiology and pulmonology. Patient was sent to the emergency room for further evaluation for suspected fluid overload from diastolic heart failure. . He was admitted to the hospitalist service for further evaluation and treatment. Patient was seen and examined at the bedside. Patient reports that he has been working with physical therapy and making progress. . He has worked with stairs during PT sessions and has been cleared from their standpoint. . Currently, he denies any chest pain or palpitations. Has reported that he is not expressing that much shortness of breath with exertion. Denies nausea, vomiting, abdominal pain or diarrhea. Objective: Vitals (See below) General: Lying in bed, no acute distress, comfortable, AAOx3 HEENT: NC, AT CVS: +S1S2 Lungs: There is fair air entry bilaterally. There still appreciated crackles at bilateral lung bases. No rhonchi or wheezing Abdomen: Soft, no distention, no tenderness Extremities: Lower extremities still reveal pitting edema bilaterally, however, now is a 1+, - Calf tenderness Assessment and plan: Acute on chronic hypoxic respiratory failure - likely 2/2 multifactorial etiology - Acute decompensated diastolic CHF - Patient has reported that he has been ambulating without any significant chance of breath - Physical with improvement of lower extremity swelling, crackles persist - BNP noted to be elevated on admission - CXR 03/05: Apparent vascular congestion with diffuse increase in inter stitial markings - ECHO report received from outpatient setting; ejection fraction appears to be preserved; diastolic function could not be evaluated at the time - Will check portal chest x-ray to evaluate fluid status; will add BNP to a.m. labs - c/w fluid restrictions of 1800 mL daily and will add salt restriction - c/w furosemide - will increase frequency - Chronic COPD, without evidence of acute exacerbation - c/w inhaled therapy as ordered - c/w reduced dose of prednisone 10 mg; will taper off prednisone completely over the next 2 weeks CAD s/p stent x3 - c/w ASA 81 PM 2/2 First degree AV block A. fib - c/w rate control with carvedilol and diltiazem - c/w full anticoagulation with Eliquis HTN - BP well elevated - c/w carvedilol and Lisinopril with holding parameters DLP - c/w Pravastatin NIDDM2 - c/w ISS AAA s/p repair (2017) - Patient has reported that he has had annual imaging completed; most recent imaging had indicated increased in size - Patient reports that he has contacted his vascular surgeon in [place] following up with them for further instructions NEFTALY (not on CPAP) RLS - c/w Magnesium supplementation BPH - c/w Tamsulosin and Finasteride DVT prophylaxis - c/w full anticoagulation with Eliquis Disposition: - c/w furosemide to maintain negative balance. - Cleared PT - Awaiting for euvolemia VS,Nicole, I+O VS, Nicole, I+O Laboratory Tests 03/09/19 05:32 Red Blood Count 5.19, Mean Corpuscular Volume 77.6 L, Mean Corpuscular Hemoglobin 21.4 L, Mean Corpuscular Hemoglobin Concent 27.5 L, Red Cell Distribution Width 18.7 H, Neutrophils (%) (Auto) 84.7 H, Lymphocytes (%) (Auto) 5.3 L, Monocytes (%) (Auto) 8.1 H, Eosinophils (%) (Auto) 1.1, Basophils (%) (Auto) 0.4, Neutrophils # (Auto) 12.4 H, Lymphocytes # (Auto) 0.8 L, Monocytes # (Auto) 1.2 H, Eosinophils # (Auto) 0.2, Basophils # (Auto) 0.1, Calcium Level 8.8 Vital Signs Date Time Temp Pulse Resp B/P (MAP) Pulse Ox O2 Delivery O2 Flow Rate FiO2 03/09/19 09:26 98 124/68 03/09/19 09:00 8.0 03/09/19 06:00 98.6 19 93 03/09/19 02:00 Nasal Cannula l I&O- Last 24 Hours up to 6 AM 03/09/19 06:00 Intake Total 1110 ml Output Total 1500 ml Balance -390 ml AMPARO LO MD Mar 09, 2019 11:23
[2019-03-09 14:00] VITALS: BP 125/68
--- NOTE | 2019-03-09 14:34 | REP ---
AP PORTABLE CHEST: 03/09/2019. Comparison: 03/05/2019, 03/07/2018. Clinical history: Dyspnea, hypoxia. Findings: Dual lead pacer over the left upper chest with leads terminating in the right atrium and right ventricle again noted. The heart has left ventricular configuration but appears less full than the previous study. The aorta is calcified at the arch and tortuous but unchanged. Airway intact. There is less vascular congestion in the upper lung zones on yesterday's study. Question of some hazy atelectatic change in the left mid lung zone versus overlapping chest wall tissues. No gross effusion or dense consolidation. Degenerative changes in the spine. Impression: 1. Slight improvement in cardiomegaly with left ventricular configuration remain but with less of venous hypertension today. 2. No gross effusion or dense consolidation. Question of some hazy atelectatic change peripherally left mid lung zone versus overlying chest wall tissues 3. Dual lead pacer unchanged. Electronically Signed by Martin Ling MD 03/09/2019 07:44 P
[2019-03-09 14:41] LABS: NT-PRO BNP 567 PG/ML (<450)
[2019-03-09] MEDS: FINASTERIDE 5 MG TAB PO SCH (20:39)
[2019-03-09 22:00] VITALS: BP 132/74
[2019-03-10] MEDS: IPRATROPIUM 0.5MG/ALBUTEROL 2.5MG INH SOL UD 3ML (DUONEB)(J7620) NEB SCH ×4 (01:00→17:01)
[2019-03-10] MEDS ORDERED: DOCUSATE SODIUM 100 MG CAP PO ONE (01:15)
[2019-03-10] MEDS: SLF 3 ML SYR IV SCH ×3 (05:39→20:05)
[2019-03-10] MEDS: FUROSEMIDE 40 MG/4 ML VIAL (J1940) IV SCH ×3 (05:39→17:09)
[2019-03-10 06:00] VITALS: BP 120/63
[2019-03-10 06:37] LABS: BASO # 0.1 10^3/uL (0.0-0.2); BASO % 0.4 % (0.0-1.0); EOS # 0.1 10^3/uL (0.0-0.5); EOS % 0.9 % (0.0-3.0); HEMATOCRIT 40.1 % (42.0-52.0); HEMOGLOBIN 11.1 g/dl (13.5-17.5); LYMPH # 0.8 10^3/uL (1.5-5.0); LYMPH % 6.5 % (24.0-44.0); MEAN CORPUSCULAR HEMOGLOBIN 21.4 pg (27.0-33.0); MEAN CORPUSCULAR HGB CONC 27.7 g/dl (32.0-36.5); MEAN CORPUSCULAR VOLUME 77.4 fl (80.0-96.0); MONO # 1.4 10^3/uL (0.0-0.8); MONO % 10.4 % (0.0-5.0); NEUTROPHILS # 10.5 10^3/uL (1.5-8.5); NEUTROPHILS % 81.4 % (36.0-66.0); PLATELET COUNT, AUTOMATED 235 10^3/uL (150-450); RED BLOOD COUNT 5.18 10^6/uL (4.30-6.10); WHITE BLOOD COUNT 12.9 10^3/uL (4.0-10.0)
[2019-03-10 07:07] LABS: BLOOD UREA NITROGEN 28 MG/DL (7-18); CARBON DIOXIDE LEVEL 40 MEQ/L (21-32); CHLORIDE LEVEL 94 MEQ/L (98-107); CREATININE FOR GFR 0.93 MG/DL (0.70-1.30); GLOMERULAR FILTRATION RATE > 60.0 (>42); GLUCOSE, FASTING 139 MG/DL (70-100); MAGNESIUM LEVEL 2.2 MG/DL (1.8-2.4); POTASSIUM SERUM 3.4 MEQ/L (3.5-5.1); SODIUM LEVEL 139 MEQ/L (136-145)
[2019-03-10] MEDS: HumaLOG INSULIN (NovoLOG) PER UNIT SC SCH ×4 (07:37→21:00)
[2019-03-10 07:41] VITALS: O2SAT 95
[2019-03-10] MEDS ORDERED: POTASSIUM CHLORIDE 10 MEQ SR TABLET PO ONE (08:00)
[2019-03-10] MEDS: CARVedilol 6.25 MG TAB PO SCH ×2 (08:47→20:04)
[2019-03-10] MEDS: TAMSULOSIN 0.4 MG CAP PO SCH (08:47)
[2019-03-10] MEDS: ASPIRIN 81 MG ENTERIC TAB PO SCH (08:47)
[2019-03-10] MEDS: APIXABAN 5 MG TAB (ELIQUIS) PO SCH ×2 (08:47→20:04)
[2019-03-10] MEDS: predniSONE 10 MG TAB PO SCH (08:47)
[2019-03-10 09:00] VITALS: O2SAT 89
--- NOTE | 2019-03-10 13:20 | IPNPDOC ---
Text Note Date of Service The patient was seen on 03/10/19. 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 fib (on Eliquis), Diastolic CHF, HTN, DLP, NIDDM2, AAA s/p repair (2017), NEFTALY (not on CPAP), COPD on 3-4L of O2, RLS, BPH who presented to the emergency room with complaints of shortness of breath that has been progressively worsening over 2-3 months. Patient has reported that he is seeing his primary care provider as well as cardiology and pulmonology. Patient was sent to the emergency room for further evaluation for suspected fluid overload from diastolic heart failure. . He was admitted to the hospitalist service for further evaluation and treatment. Patient was seen and examined at the bedside. Patient has been tapered down on his supplemental oxygen. He reports that he has been ambulating without any significant shortness of breath. Denies chest pain, or palpitations. Denies nausea, vomiting, abdominal pain or diarrhea. Objective: Vitals (See below) General: Lying in bed, no acute distress, comfortable, AAOx3 HEENT: NC, AT CVS: +S1S2 Lungs: Air entry is fair bilaterally without evidence of wheezing or rhonchi. There is still are inspiratory crackles noted Abdomen: Abdomen remains soft, no distention or tenderness is appreciated Extremities: 1+ pitting edema bilaterally, - Calf tenderness Assessment and plan: Acute on chronic hypoxic respiratory failure - likely 2/2 multifactorial etiology - Acute decompensated diastolic CHF - Clinically patient has reported improvement in his breathing and has had an easier time with ambulation - Physical with improvement in LE swelling - BNP noted to be elevated on admission; has improved from hospitalization - CXR 03/05: Apparent vascular congestion with diffuse increase in interstitial markings - CXR 03/09: 1. Slight improvement in cardiomegaly with left ventricular configuration remain but with less of venous hypertension today. 2. No gross effusion or dense consolidation. Question of some hazy atelectatic change peripherally left mid lung zone versus overlying chest wall tissues 3. Dual lead pacer unchanged. - ECHO report received from outpatient setting; ejection fraction appears to be preserved; diastolic function could not be evaluated at the time - c/w fluid restrictions of 1800 mL daily and will add salt restriction - c/w furosemide at adjusted frequency - Chronic COPD, without evidence of acute exacerbation - c/w inhaled therapy as ordered - c/w reduced dose of prednisone 10 mg; will taper off prednisone completely over the next 2 weeks CAD s/p stent x3 - c/w ASA 81 PM 2/2 First degree AV block A. fib - c/w rate control with carvedilol and diltiazem - c/w full anticoagulation with Eliquis HTN - BP well elevated - c/w carvedilol and Lisinopril with holding parameters DLP - c/w Pravastatin NIDDM2 - c/w ISS AAA s/p repair (2017) - Patient has reported that he has had annual imaging completed; most recent imaging had indicated increased in size - Patient reports that he has contacted his vascular surgeon in [place] following up with them for further instructions NEFTALY (not on CPAP) RLS - c/w Magnesium supplementation BPH - c/w Tamsulosin and Finasteride DVT prophylaxis - c/w full anticoagulation with Eliquis Disposition: - c/w furosemide to maintain negative balance; awaiting euvolemia - Cleared PT VS,Fishbone, I+O VS, Fishbone, I+O Laboratory Tests 03/10/19 05:19 Red Blood Count 5.18, Mean Corpuscular Volume 77.4 L, Mean Corpuscular Hemoglobin 21.4 L, Mean Corpuscular Hemoglobin Concent 27.7 L, Red Cell Distribution Width 18.8 H, Neutrophils (%) (Auto) 81.4 H, Lymphocytes (%) (Auto) 6.5 L, Monocytes (%) (Auto) 10.4 H, Eosinophils (%) (Auto) 0.9, Basophils (%) (Auto) 0.4, Neutrophils # (Auto) 10.5 H, Lymphocytes # (Auto) 0.8 L, Monocytes # (Auto) 1.4 H, Eosinophils # (Auto) 0.1, Basophils # (Auto) 0.1, Calcium Level 9.0 Vital Signs Date Time Temp Pulse Resp B/P (MAP) Pulse Ox O2 Delivery O2 Flow Rate FiO2 03/10/19 09:00 6.0 03/10/19 08:47 104 128/65 03/10/19 07:41 95 Nasal Cannula 03/10/19 06:00 98.2 21 I&O- Last 24 Hours up to 6 AM 9/29/19 06:00 Intake Total 1650 ml Output Total 2865 ml Balance -1215 ml AMPARO LO MD Mar 10, 2019 13:20
[2019-03-10 14:00] VITALS: BP 116/76
[2019-03-10 16:00] VITALS: O2SAT 90
[2019-03-10] MEDS: FINASTERIDE 5 MG TAB PO SCH (20:04)
[2019-03-10 22:00] VITALS: BP 122/73
[2019-03-11] VITALS (9 sets, daily range): BP systolic 108–134; BP diastolic 72–85; O2SAT 82–94
[2019-03-11] MEDS: FUROSEMIDE 40 MG/4 ML VIAL (J1940) IV SCH ×2 (00:21→05:53)
[2019-03-11] MEDS: IPRATROPIUM 0.5MG/ALBUTEROL 2.5MG INH SOL UD 3ML (DUONEB)(J7620) NEB SCH ×4 (00:34→20:08)
[2019-03-11 05:38] LABS: BASO # 0.1 10^3/uL (0.0-0.2); BASO % 0.6 % (0.0-1.0); EOS # 0.2 10^3/uL (0.0-0.5); EOS % 1.5 % (0.0-3.0); HEMATOCRIT 40.7 % (42.0-52.0); HEMOGLOBIN 11.3 g/dl (13.5-17.5); LYMPH % 8.8 % (24.0-44.0); MEAN CORPUSCULAR HGB CONC 27.8 g/dl (32.0-36.5); MEAN CORPUSCULAR VOLUME 79.2 fl (80.0-96.0); MONO % 9.5 % (0.0-5.0); NEUTROPHILS # 8.6 10^3/uL (1.5-8.5); NEUTROPHILS % 79.2 % (36.0-66.0); PLATELET COUNT, AUTOMATED 235 10^3/uL (150-450); RED BLOOD COUNT 5.14 10^6/uL (4.30-6.10); WHITE BLOOD COUNT 10.9 10^3/uL (4.0-10.0)
[2019-03-11 06:07] LABS: BLOOD UREA NITROGEN 27 MG/DL (7-18); CALCIUM LEVEL 9.3 MG/DL (8.8-10.2); CARBON DIOXIDE LEVEL 39 MEQ/L (21-32); CHLORIDE LEVEL 96 MEQ/L (98-107); CREATININE FOR GFR 0.94 MG/DL (0.70-1.30); GLOMERULAR FILTRATION RATE > 60.0 (>42); GLUCOSE, FASTING 163 MG/DL (70-100); MAGNESIUM LEVEL 2.1 MG/DL (1.8-2.4); POTASSIUM SERUM 3.6 MEQ/L (3.5-5.1); SODIUM LEVEL 140 MEQ/L (136-145)
[2019-03-11] MEDS: SLF 3 ML SYR IV SCH ×3 (06:26→20:53)
[2019-03-11] MEDS: HumaLOG INSULIN (NovoLOG) PER UNIT SC SCH ×4 (06:51→21:07)
[2019-03-11] MEDS ORDERED: POTASSIUM CHLORIDE 10 MEQ SR TABLET PO ONE (08:00)
[2019-03-11] MEDS: APIXABAN 5 MG TAB (ELIQUIS) PO SCH ×2 (08:56→20:52)
[2019-03-11] MEDS: ASPIRIN 81 MG ENTERIC TAB PO SCH (08:56)
[2019-03-11] MEDS: TAMSULOSIN 0.4 MG CAP PO SCH (08:57)
[2019-03-11] MEDS: predniSONE 10 MG TAB PO SCH (08:57)
[2019-03-11] MEDS: CARVedilol 6.25 MG TAB PO SCH ×2 (08:59→20:52)
--- NOTE | 2019-03-11 10:45 | IPNPDOC ---
Text Note Date of Service The patient was seen on 03/11/19. 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 fib (on Eliquis), Diastolic CHF, HTN, DLP, NIDDM2, AAA s/p repair (2017), NEFTALY (not on CPAP), COPD on 3-4L of O2, RLS, BPH who presented to the emergency room with complaints of shortness of breath that has been progressively worsening over 2-3 months. Patient has reported that he is seeing his primary care provider as well as cardiology and pulmonology. Patient was sent to the emergency room for further evaluation for suspected fluid overload from diastolic heart failure. . He was admitted to the hospitalist service for further evaluation and treatment. Patient was seen and examined at the bedside. Patient has been ambulating without any significant SOB while on oxygen. Patient denies chest pain or palpitations. Denies nausea, abdominal pain or diarrhea. Objective: Vitals (See below) General: Lying in bed, no acute distress, comfortable, AAOx3 HEENT: NC, AT CVS: +S1S2 Lungs: Air entry appears to be fair bilaterally without evidence of rhonchi or wheezing. Very faint crackles appreciated bilaterally Abdomen: Remains soft without distention or tenderness Extremities: Trace to 1+ pitting edema bilaterally, - Calf tenderness Assessment and plan: Acute on chronic hypoxic respiratory failure - likely 2/2 multifactorial etiology - Acute decompensated diastolic CHF - Continues to ambulate without any significant chance of breath - Signs of fluid overload have been improving - BNP noted to be elevated on admission; has improved - CXR 03/05: Apparent vascular congestion with diffuse increase in interstitial markings - CXR 03/09: 1. Slight improvement in cardiomegaly with left ventricular configuration remain but with less of venous hypertension today. 2. No gross e ffusion or dense consolidation. Question of some hazy atelectatic change peripherally left mid lung zone versus overlying chest wall tissues 3. Dual lead pacer unchanged. - ECHO report received from outpatient setting; ejection fraction appears to be preserved; diastolic function could not be evaluated at the time - c/w fluid restrictions of 1800 mL daily and will add salt restriction - Will start Torsemide today; will discontinue furosemide IV - Chronic COPD, without evidence of acute exacerbation - c/w inhaled therapy as ordered - Will reduce dose of Prednisone again today CAD s/p stent x3 - c/w ASA 81 PM 2/2 First degree AV block A. fib - c/w rate control with carvedilol and diltiazem - c/w full anticoagulation with Eliquis HTN - BP well elevated - c/w carvedilol with holding parameters DLP - c/w Pravastatin NIDDM2 - c/w ISS AAA s/p repair (2016) - Patient has reported that he has had annual imaging completed; most recent imaging had indicated increased in size - Patient reports that he has contacted his vascular surgeon in [place] following up with them for further instructions NEFTALY (not on CPAP) RLS - c/w Magnesium supplementation BPH - c/w Tamsulosin and Finasteride DVT prophylaxis - c/w full anticoagulation with Eliquis Disposition: - Approaching euvolemia; will transition to oral diuretic therapy - Cleared PT VS,Fishbone, I+O VS, Fishbone, I+O Laboratory Tests 03/11/19 05:22 Red Blood Count 5.14, Mean Corpuscular Volume 79.2 L, Mean Corpuscular Hemoglobin 22.0 L, Mean Corpuscular Hemoglobin Concent 27.8 L, Red Cell Distribution Width 18.4 H, Neutrophils (%) (Auto) 79.2 H, Lymphocytes (%) (Auto) 8.8 L, Monocytes (%) (Auto) 9.5 H, Eosinophils (%) (Auto) 1.5, Basophils (%) (Auto) 0.6, Neutrophils # (Auto) 8.6 H, Lymphocytes # (Auto) 1.0 L, Monocytes # (Auto) 1.0 H, Eosinophils # (Auto) 0.2, Basophils # (Auto) 0.1, Calcium Level 9.3 Vital Signs Date Time Temp Pulse Resp B/P (MAP) Pulse Ox O2 Delivery O2 Flow Rate FiO2 03/11/19 08:59 91 134/82 03/11/19 06:00 98.1 19 93 03/11/19 05:00 6.0 03/11/19 00:35 Nasal Cannula I&O- Last 24 Hours up to 6 AM 03/11/19 06:00 Intake Total 1520 ml Output Total 2675 ml Balance -1155 ml AMPARO LO MD Mar 11, 2019 10:45
[2019-03-11] MEDS ORDERED: TORSEMIDE 20 MG TAB PO ONE (11:00)
[2019-03-11] MEDS ORDERED: TORSEMIDE 20 MG TAB PO SCH (17:00)
[2019-03-11] MEDS: FINASTERIDE 5 MG TAB PO SCH (20:52)
[2019-03-11] MEDS: SODIUM CHLORIDE NASAL 0.65% SPRAY BTL (OCEAN) PRN (20:57)
[2019-03-12] VITALS (7 sets, daily range): BP systolic 117–120; BP diastolic 61–70; O2SAT 90–95
[2019-03-12] MEDS: IPRATROPIUM 0.5MG/ALBUTEROL 2.5MG INH SOL UD 3ML (DUONEB)(J7620) NEB SCH ×4 (01:25→20:00)
[2019-03-12] MEDS: SLF 3 ML SYR IV SCH ×3 (05:44→14:33)
[2019-03-12 06:09] LABS: BASO # 0.1 10^3/uL (0.0-0.2); BASO % 0.5 % (0.0-1.0); EOS # 0.2 10^3/uL (0.0-0.5); EOS % 1.7 % (0.0-3.0); HEMATOCRIT 40.4 % (42.0-52.0); HEMOGLOBIN 11.2 g/dl (13.5-17.5); LYMPH # 1.1 10^3/uL (1.5-5.0); LYMPH % 11.2 % (24.0-44.0); MEAN CORPUSCULAR HGB CONC 27.7 g/dl (32.0-36.5); MEAN CORPUSCULAR VOLUME 79.2 fl (80.0-96.0); MONO # 0.9 10^3/uL (0.0-0.8); MONO % 9.5 % (0.0-5.0); NEUTROPHILS # 7.5 10^3/uL (1.5-8.5); NEUTROPHILS % 76.7 % (36.0-66.0); PLATELET COUNT, AUTOMATED 274 10^3/uL (150-450); WHITE BLOOD COUNT 9.7 10^3/uL (4.0-10.0)
[2019-03-12 06:39] LABS: BLOOD UREA NITROGEN 31 MG/DL (7-18); CALCIUM LEVEL 9.4 MG/DL (8.8-10.2); CARBON DIOXIDE LEVEL 38 MEQ/L (21-32); CHLORIDE LEVEL 95 MEQ/L (98-107); CREATININE FOR GFR 0.88 MG/DL (0.70-1.30); GLOMERULAR FILTRATION RATE > 60.0 (>42); GLUCOSE, FASTING 164 MG/DL (70-100); MAGNESIUM LEVEL 2.1 MG/DL (1.8-2.4); POTASSIUM SERUM 3.4 MEQ/L (3.5-5.1); SODIUM LEVEL 137 MEQ/L (136-145)
[2019-03-12] MEDS: TAMSULOSIN 0.4 MG CAP PO SCH (08:23)
[2019-03-12] MEDS: HumaLOG INSULIN (NovoLOG) PER UNIT SC SCH ×4 (08:23→21:44)
[2019-03-12] MEDS: predniSONE 5 MG TAB PO SCH (08:24)
[2019-03-12] MEDS: APIXABAN 5 MG TAB (ELIQUIS) PO SCH ×2 (08:24→21:43)
[2019-03-12] MEDS: ASPIRIN 81 MG ENTERIC TAB PO SCH (08:24)
[2019-03-12] MEDS: TORSEMIDE 10 MG TABLET PO SCH ×2 (08:24→17:44)
[2019-03-12] MEDS: CARVedilol 6.25 MG TAB PO SCH ×2 (08:25→21:43)
[2019-03-12] MEDS ORDERED: POTASSIUM CHLORIDE 10 MEQ SR TABLET PO ONE (10:00)
--- NOTE | 2019-03-12 10:51 | IPNPDOC ---
Text Note Date of Service The patient was seen on 03/12/19. 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 fib (on Eliquis), Diastolic CHF, HTN, DLP, NIDDM2, AAA s/p repair (2017), NEFTALY (not on CPAP), COPD on 3-4L of O2, RLS, BPH who presented to the emergency room with complaints of shortness of breath that has been progressively worsening over 2-3 months. Patient has reported that he is seeing his primary care provider as well as cardiology and pulmonology. Patient was sent to the emergency room for further evaluation for suspected fluid overload from diastolic heart failure. . He was admitted to the hospitalist service for further evaluation and treatment. Patient was seen and examined at the bedside. Patient reports that he feels better. LE swelling has improved significantly. Has been transitioned to oral diuretic therapy. Denies any CP or palpitations. Reports his breathing is a littler easier. Denies any N/V, abdominal pain, C/D, or dysuria. Objective: Vitals (See below) General: Lying in bed, no acute distress, comfortable, AAOx3 HEENT: NC, AT CVS: +S1S2 Lungs: Fair air entry b/l, no wheezing / rhonchi, mild crackles at b/l bases Abdomen: Soft, ND, NT Extremities: Trace pitting edema bilaterally, - Calf tenderness Assessment and plan: Acute on chronic hypoxic respiratory failure - likely 2/2 multifactorial etiology - Acute decompensated diastolic CHF - Clinical improvement of SOB - Very mild signs of fluid overload - transitioning to maintenance dose of diuretics - BNP noted to be elevated on admission; has improved - CXR 03/05: Apparent vascular congestion with diffuse increase in interstitial markings - CXR 03/09: 1. Slight improvement in cardiomegaly with left ventricular configuration remain but with less of venous hypertension today. 2. No gross effusion or dense consolidation. Question of some hazy atelectatic change peripherally left mid lung zone versus overlying chest wall tissues 3. Dual lead pacer unchanged. - ECHO report received from outpatient setting; ejection fraction appears to be preserved; diastolic function could not be evaluated at the time - c/w fluid restrictions of 1800 mL daily and will add salt restriction - c/w Torsemide - will adjust dose; s/p Furosemide IV - Chronic COPD, without evidence of acute exacerbation - c/w inhaled therapy as ordered - c/w reduced dose of Prednisone CAD s/p stent x3 - c/w ASA 81 PM 2/2 First degree AV block A. fib - c/w rate control with carvedilol and diltiazem - c/w full anticoagulation with Eliquis HTN - BP well elevated - c/w carvedilol with holding parameters DLP - c/w Pravastatin NIDDM2 - c/w ISS AAA s/p repair (2017) - Patient has reported that he has had annual imaging completed; most recent imaging had indicated increased in size - Patient reports that he has contacted his vascular surgeon in [place] following up with them for further instructions NEFTALY (not on CPAP) RLS - c/w Magnesium supplementation BPH - c/w Tamsulosin and Finasteride DVT prophylaxis - c/w full anticoagulation with Eliquis Disposition: - Transitioned to oral diuretics - adjusted dose - Discharge within 24 hours - Cleared PT VS,Fishbone, I+O VS, Johanbone, I+O Laboratory Tests 03/12/19 05:38 Red Blood Count 5.10, Mean Corpuscular Volume 79.2 L, Mean Corpuscular Hemoglobin 22.0 L, Mean Corpuscular Hemoglobin Concent 27.7 L, Red Cell Distribution Width 18.3 H, Neutrophils (%) (Auto) 76.7 H, Lymphocytes (%) (Auto) 11.2 L, Monocytes (%) (Auto) 9.5 H, Eosinophils (%) (Auto) 1.7, Basophils (%) (Auto) 0.5, Neutrophils # (Auto) 7.5, Lymphocytes # (Auto) 1.1 L, Monocytes # (Auto) 0.9 H, Eosinophils # (Auto) 0.2, Basophils # (Auto) 0.1, Calcium Level 9.4 Vital Signs Date Time Temp Pulse Resp B/P (MAP) Pulse Ox O2 Delivery O2 Flow Rate FiO2 03/12/19 08:25 99 120/70 03/12/19 01:25 95 Nasal Cannula 6.0 03/11/19 22:00 98.4 22 I&O- Last 24 Hours up to 6 AM 03/12/19 06:00 Intake Total 1200 ml Output Total 1900 ml Balance -700 ml LO,VIJESH MD Mar 12, 2019 10:51
[2019-03-12] MEDS: FINASTERIDE 5 MG TAB PO SCH (21:42)
[2019-03-13 01:00] VITALS: O2SAT 96
[2019-03-13] MEDS: IPRATROPIUM 0.5MG/ALBUTEROL 2.5MG INH SOL UD 3ML (DUONEB)(J7620) NEB SCH ×2 (01:52→07:36)
[2019-03-13 03:41] VITALS: O2SAT 90
[2019-03-13 06:00] VITALS: BP 104/57
[2019-03-13 07:00] VITALS: O2SAT 93
[2019-03-13 08:15] LABS: BASO # 0.1 10^3/uL (0.0-0.2); BASO % 0.5 % (0.0-1.0); EOS # 0.2 10^3/uL (0.0-0.5); EOS % 1.9 % (0.0-3.0); HEMATOCRIT 41.5 % (42.0-52.0); HEMOGLOBIN 11.7 g/dl (13.5-17.5); LYMPH # 0.8 10^3/uL (1.5-5.0); LYMPH % 7.8 % (24.0-44.0); MEAN CORPUSCULAR HEMOGLOBIN 22.2 pg (27.0-33.0); MEAN CORPUSCULAR HGB CONC 28.2 g/dl (32.0-36.5); MEAN CORPUSCULAR VOLUME 78.7 fl (80.0-96.0); MONO % 10.4 % (0.0-5.0); NEUTROPHILS # 7.6 10^3/uL (1.5-8.5); NEUTROPHILS % 79.1 % (36.0-66.0); PLATELET COUNT, AUTOMATED 282 10^3/uL (150-450); RED BLOOD COUNT 5.27 10^6/uL (4.30-6.10); WHITE BLOOD COUNT 9.6 10^3/uL (4.0-10.0)
[2019-03-13 08:46] LABS: BLOOD UREA NITROGEN 25 MG/DL (7-18); CARBON DIOXIDE LEVEL 41 MEQ/L (21-32); CHLORIDE LEVEL 94 MEQ/L (98-107); CREATININE FOR GFR 0.92 MG/DL (0.70-1.30); GLOMERULAR FILTRATION RATE > 60.0 (>42); GLUCOSE, FASTING 192 MG/DL (70-100); NT-PRO BNP 316 PG/ML (<450); POTASSIUM SERUM 3.3 MEQ/L (3.5-5.1); SODIUM LEVEL 138 MEQ/L (136-145)
[2019-03-13] MEDS: ASPIRIN 81 MG ENTERIC TAB PO SCH (08:47)
[2019-03-13] MEDS: TAMSULOSIN 0.4 MG CAP PO SCH (08:47)
[2019-03-13] MEDS: TORSEMIDE 10 MG TABLET PO SCH (08:47)
[2019-03-13] MEDS: predniSONE 5 MG TAB PO SCH (08:48)
[2019-03-13 08:50] VITALS: BP 113/73
[2019-03-13] MEDS: HumaLOG INSULIN (NovoLOG) PER UNIT SC SCH ×2 (08:50→12:03)
[2019-03-13] MEDS: CARVedilol 6.25 MG TAB PO SCH (08:50)
[2019-03-13] MEDS: APIXABAN 5 MG TAB (ELIQUIS) PO SCH (08:51)
[2019-03-13] MEDS ORDERED: POTA1TAB14 PO (10:21)
[2019-03-13] MEDS ORDERED: TORS20TA2 PO ×2 (10:21→11:47)
[2019-03-13] MEDS ORDERED: POTASSIUM CHLORIDE 10 MEQ SR TABLET PO ONE (10:30)
[2019-03-13] MEDS ORDERED: TORS5TAB2 PO (10:52)
[2019-03-13] MEDS ORDERED: PRED5PAK2 PO (13:06)
--- NOTE | 2019-03-13 13:08 | DS.PDOC ---
Discharge Summary General Date of Admission Mar 05, 2019 at 17:50 Date of Discharge 03/13/2019 Discharge Summary PROCEDURES PERFORMED DURING STAY: [None]. ADMITTING DIAGNOSES / DISCHARGE DIAGNOSES: Acute on chronic hypoxic respiratory failure - likely 2/2 multifactorial etiology - Acute Decompensated Diastolic CHF - Chronic COPD, without evidence of acute exacerbation CAD s/p stent x3 PM 2/2 First degree AV block A. fib HTN DLP NIDDM2 AAA s/p repair (2016) NEFTALY (not on CPAP) RLS BPH DVT prophylaxis COMPLICATIONS/CHIEF COMPLAINT: Shortness Of Breath. HISTORY OF PRESENT ILLNESS: Patient is a 78-year-old male with a PMHx of CAD s/p stent x3, 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 fib (on Eliquis), Diastolic CHF, HTN, DLP, NIDDM2, AAA s/p repair (2017), NEFTALY (not on CPAP), COPD on 3-4L of O2, RLS, BPH who presented to the emergency room with complaints of shortness of breath that has been progressively worsening over 2-3 months. Patient has reported that he is seeing his primary care provider as well as cardiology and pulmonology. Patient was sent to the emergency room for further evaluation for suspected fluid overload from diastolic heart failure. . He was admitted to the hospitalist service for further evaluation and treatment. HOSPITAL COURSE: Acute on chronic hypoxic respiratory failure - likely 2/2 multifactorial etiology - Acute decompensated diastolic CHF - Clinical improvement of SOB - Significant improvement in LE edema - BNP noted to be elevated on admission - has improved to baseline - CXR 03/05: Apparent vascular congestion with diffuse increase in intersti tial markings - CXR 03/09: 1. Slight improvement in cardiomegaly with left ventricular configuration remain but with less of venous hypertension today. 2. No gross effusion or dense consolidation. Question of some hazy atelectatic change peripherally left mid lung zone versus overlying chest wall tissues 3. Dual lead pacer unchanged. - ECHO report received from outpatient setting; ejection fraction appears to be preserved; diastolic function could not be evaluated at the time - c/w fluid restrictions of 1800 mL daily and will add salt restriction - c/w Torsemide - will adjust dose; s/p Furosemide IV - Will continue with reduced dose of Torsemide as an outpatient; will have outpatient follow up with Dr. Jerrica Crystal within [address] Hall & Dr. Atkins within 1-2 weeks - Chronic COPD, without evidence of acute exacerbation - c/w inhaled therapy as ordered - c/w reduced dose of Prednisone; will continue as an outpatient for 5 more days CAD s/p stent x3 - c/w ASA 81 PM 2/2 First degree AV block A. fib - c/w rate control with carvedilol and diltiazem - c/w full anticoagulation with Eliquis HTN - BP well elevated - c/w carvedilol with holding parameters DLP - c/w Pravastatin NIDDM2 - c/w ISS AAA s/p repair (2017) - Patient has reported that he has had annual imaging completed; most recent imaging had indicated increased in size - Patient reports that he has contacted his vascular surgeon in [place] following up with them for further instructions NEFTALY (not on CPAP) RLS - c/w Magnesium supplementation BPH - c/w Tamsulosin and Finasteride DVT prophylaxis - c/w full anticoagulation with Eliquis DISCHARGE MEDICATIONS: Please see below. ALLERGIES: Please see below. PHYSICAL EXAMINATION ON DISCHARGE: Vitals (See below) General: Lying in bed, no acute distress, comfortable, AAOx3 HEENT: NC, AT CVS: +S1S2 Lungs: Fair air entry b/l, auscultation is without rhonchi / wheezing, very mild / faint crackles noted Abdomen: Soft, without distension / tenderness Extremities: LE with trace edema bilaterally, - Calf tenderness LABORATORY DATA: Please see below. ACTIVITY: [As tolerated]. DISCHARGE PLAN: Follow up with Dr. Irena Crystal within 7 days Follow up with Dr. Atkins and Dr. Hall within 1-2 weeks Remain compliant with treatment plan and medications Return to the ER if you experience any problems DISPOSITION: Home with services DISCHARGE CONDITION: [Stable]. TIME SPENT ON DISCHARGE: 38 minutes Vital Signs/I&Os Vital Signs Date Time Temp Pulse Resp B/P (MAP) Pulse Ox O2 Delivery O2 Flow Rate FiO2 03/13/19 08:50 101 113/73 03/13/19 08:00 4.0 03/13/19 07:38 Nasal Cannula 03/13/19 07:00 93 03/13/19 06:00 97.1 17 I&O- Last 24 Hours up to 6 AM 03/13/19 06:00 Intake Total 2010 ml Output Total 4700 ml Balance -2690 ml Laboratory Data Labs 24H Laboratory Tests 2 03/12/19 16:47: Bedside Glucose (Misc Panel) 255H 03/12/19 20:14: Bedside Glucose (Misc Panel) 276H 03/13/19 06:23: Bedside Glucose (Misc Panel) 208H 03/13/19 07:50: Immature Granulocyte % (Auto) 0.3, White Blood Count 9.6, Red Blood Count 5.27, Hemoglobin 11.7L, Hematocrit 41.5L, Mean Corpuscular Volume 78.7L, Mean [place] uscular Hemoglobin 22.2L, Mean Corpuscular Hemoglobin Concent 28.2L, Red Cell Distribution Width 18.4H, Platelet Count 282, Neutrophils (%) (Auto) 79.1H, Lymphocytes (%) (Auto) 7.8L, Monocytes (%) (Auto) 10.4H, Eosinophils (%) (Auto) 1.9, Basophils (%) (Auto) 0.5, Neutrophils # (Auto) 7.6, Lymphocytes # (Auto) 0.8L, Monocytes # (Auto) 1.0H, Eosinophils # (Auto) 0.2, Basophils # (Auto) 0.1, Nucleated Red Blood Cells % (auto) 0.0, Anion Gap 3L, Glomerular Filtration Rate > 60.0, Blood Urea Nitrogen 25H, Creatinine 0.92, Sodium Level 138, Potassium Level 3.3L, Chloride Level 94L, Carbon Dioxide Level 41H, Calcium Level 9.0, YV-Pfi-[id number]-Type Natriuretic Peptide 316 03/13/19 11:36: Bedside Glucose (Misc Panel) 343H CBC/BMP Laboratory Tests 03/13/19 07:50 Red Blood Count 5.27, Mean Corpuscular Volume 78.7 L, Mean Corpuscular Hemoglobin 22.2 L, Mean Corpuscular Hemoglobin Concent 28.2 L, Red Cell Distribution Width 18.4 H, Neutrophils (%) (Auto) 79.1 H, Lymphocytes (%) (Auto) 7.8 L, Monocytes (%) (Auto) 10.4 H, Eosinophils (%) (Auto) 1.9, Basophils (%) (Auto) 0.5, Neutrophils # (Auto) 7.6, Lymphocytes # (Auto) 0.8 L, Monocytes # (Auto) 1.0 H, Eosinophils # (Auto) 0.2, Basophils # (Auto) 0.1, Calcium Level 9.0 FSBS Laboratory Tests Test 03/12/19 16:47 03/12/19 20:14 03/13/19 06:23 03/13/19 11:36 Range/Units Bedside Glucose (Misc Panel) 255 276 208 343 83-110 MG/DL Microbiology Microbiology 03/05/19 Blood Culture - Final, Complete NO GROWTH AFTER 5 DAYS Discharge Medications Scheduled Albuterol Sulf (Albuterol Sulfate) 2.5 Mg/3 Ml Vial.neb, 1 VIAL INH BID, (Reported) Apixaban (Eliquis) 5 Mg Tab, 5 MG PO BID, (Reported) Aspirin (Aspirin EC) 81 Mg Tab, 81 MG PO DAILY, (Reported) Carvedilol (Coreg) 6.25 Mg Tab, 6.25 MG PO BID, (Reported) Docusate Sodium (Stool Softener) 100 Mg Cap, 100 MG PO QHS, (Reported) Finasteride (Finasteride) 5 Mg Tab, 5 MG PO DAILY, (Reported) Folic Acid/Multivit-Min/Lutein (Multi-Vitamin Gummies) 1 Each Tab.chew, 1 TAB PO DAILY, (Reported) Glimepiride (Amaryl) 1 Mg Tab, 1 MG PO DAILY, (Reported) Hydrochlorothiazide (Hydrochlorothiazide) 12.5 Mg Tab, 12.5 MG PO DAILY, (Reported) Ipratropium Artie (Atrovent Hfa) 12.9 Gm Hfa.aer.ad, 2 PUFF INH QID, (Reported) Lactobacillus Acidophilus (Probiotic) 1 Cap Cap, 1 CAP PO BID, (Reported) Levalbuterol Hydrochloride (Xopenex Concentrate) 1.25 Mg/0.5 Ml Vial.neb, 1 VIAL INH TID, (Reported) Magnesium (Magnesium) 250 Mg Tablet, 250 MG PO QHS, (Reported) Metformin HCl (Metformin HCl) 1,000 Mg Tab, 1,000 MG PO BID, (Reported) [place]-3/Dha/Epa/Fish Oil (Fish Oil EC 1,000 mg Softgel) 1 Cap Cap, 1 CAP PO BID, (Reported) Phenylephrine HCl (Bao-Synephrine) 15 Ml [place], 1 SPRAY NARES BID, (Reported) Potassium Chloride (Potassium Chloride) 20 Meq Tablet.er, 40 MEQ PO DAILY Pravastatin Sodium (Pravachol) 80 Mg Tab, 80 MG PO QHS, (Reported) Salmeterol/Fluticasone (Advair 500-50 Diskus) 1 Each Blst.w.dev, 1 PUFF INH BID, (Reported) Tamsulosin HCl (Flomax) 0.4 Mg Cap, 0.4 MG PO DAILY, (Reported) Torsemide (Torsemide) 5 Mg Tablet, 4 TAB PO BID Torsemide (Torsemide) 20 Mg Tablet, 1 TAB PO BID Replacement for torsemide 5mg (4 tablets) once available; STOP taking 5mg tablets once this prescription is available Scheduled PRN Albuterol Sulf (Albuterol Sulfate) 2.5 Mg/3 Ml Vial.neb, 1 VIAL INH Q6H PRN for SOB/WHEEZING, (Reported) Guaifenesin/Dextromethorphan (Mucinex Dm ER 600-30 mg Tablet) 1 Each Tab.er.12h, 1 TAB PO BIDP PRN for cough and congestion, (Reported) Allergies Coded Allergies: Penicillins (Verified Allergy, Unknown, 03/05/19) ciprofloxacin (Verified Allergy, Unknown, 03/05/19) sertraline (Verified Allergy, Unknown, 03/05/19) Thrall (Unverified Adverse Reaction, Unknown, NAUSEA, 01/25/17) AMPARO LO MD Mar 13, 2019 13:08
[2019-03-14] MEDS ORDERED: POTASSIUM CHLORIDE 10 MEQ SR TABLET PO SCH (09:00)
== END 2019-03-13 14:05 | disposition home or self-care (01) | DRG 291 ==
LOC: M ED 15:00 → M ED INP 17:50 → M PCU 20:33 → M MSPAV 03-07 14:24
PROVIDERS: ADMIT Internal Medicine; ATTEND Internal Medicine
DX: I11.0 Hypertensive heart disease with heart failure (principal); J96.21 Acute and chronic respiratory failure with hypoxia; I50.33 Acute on chronic diastolic (congestive) heart failure; J44.9 Chronic obstructive pulmonary disease, unspecified; I25.10 Atherosclerotic heart disease of native coronary artery without angina pectoris; I48.91 Unspecified atrial fibrillation; E78.5 Hyperlipidemia, unspecified; E11.9 Type 2 diabetes mellitus without complications; G47.33 Obstructive sleep apnea (adult) (pediatric); G25.81 Restless legs syndrome; N40.0 Benign prostatic hyperplasia without lower urinary tract symptoms; Z95.0 Presence of cardiac pacemaker; Z95.5 Presence of coronary angioplasty implant and graft; Z79.01 Long term (current) use of anticoagulants; Z79.82 Long term (current) use of aspirin; Z79.52 Long term (current) use of systemic steroids; Z79.899 Other long term (current) drug therapy; Z88.0 Allergy status to penicillin; Z88.1 Allergy status to other antibiotic agents; Z88.8 Allergy status to other drugs, medicaments and biological substances; Z91.018 Allergy to other foods; Z99.81 Dependence on supplemental oxygen; Z96.653 Presence of artificial knee joint, bilateral; Z98.41 Cataract extraction status, right eye; Z98.42 Cataract extraction status, left eye